=== PATIENT | female | born 1945 | race Caucasian/White ===

== ENCOUNTER 2019-11-24 18:33 | Emergency (ER) | payer MEDICARE, BC ==
--- NOTE | 2019-11-24 19:11 | EDM.PDOC ---
ED HPI GENERAL MEDICAL PROBLEM - General Chief Complaint: [employer]IN [employer] Problem Stated Complaint: VAGINAL BLEEDING Time Seen by Provider: 11/24/19 18:43 Source of Information: Reports: Patient History Limitations: Reports: No Limitations - History of Present Illness INITIAL COMMENTS - FREE TEXT/NARRATIVE: Patient presents by private vehicle from home describing lower abdominal pain and increasing vaginal bleeding over the last 48 hours. She did not feel good Wednesday and then began to notice some abdominal discomfort . She came to the clinic today and among other parts of the visit and a vaginal ultrasound. She does not know the exact findings of the ultrasound but was told by staff that if bleeding worsened, she should return to the emergency department. She apparently also has been scheduled to see oncology. She felt lightheaded and sweaty yesterday and also today while she was driving here, on her own. On arrival her systolic blood pressure was less than 80 and pulse was in the 90s. She feels weak and lightheaded. Onset: Gradual Duration: Day(s): (3) Location: Reports: Pelvis Quality: Reports: Burning, Sharp Severity: Moderate Improves with: Reports: None Worsens with: Reports: Movement Associated Symptoms: Reports: Diaphoresis, Weakness - Related Data Allergies Allergy/AdvReac Type Severity Reaction Status Date / Time cephalexin [From Keflex] Allergy Hives Verified 11/24/19 18:50 Penicillins Allergy Hives Verified 11/24/19 18:50 Home Meds: Home Meds Simvastatin 1 tab PO DAILY 11/24/19 [History] Vit D3 & K/Berberine HCl/Hops [Ostera] 1 tab PO DAILY 11/24/19 [History] amLODIPine Besylate [Amlodipine Besylate] 1 tab PO DAILY 11/24/19 [History] lisinopriL [Lisinopril] 1 tab PO BID 11/24/19 [History] Past Medical History Cardiovascular History: Reports: High Cholesterol, Hypertension Social & Family History - Tobacco Use Smoking Status *Q: Never Smoker ED ROS GENERAL - Review of Systems Review Of Systems: See Below Constitutional: Reports: Weakness, Diaphoresis HEENT: Reports: No Symptoms Respiratory: Reports: No Symptoms Cardiovascular: Reports: Lightheadedness Endocrine: Reports: Fatigue GI/Abdominal: Reports: Abdominal Pain, Other (Vaginal bleeding.) : Reports: No Symptoms Musculoskeletal: Reports: No Symptoms Skin: Reports: No Symptoms ED EXAM, GI/ABD - Physical Exam Exam: See Below Text/Narrative:: This is an adult female in moderate distress lying on her left side to reduce lightheaded feelings. Exam Limited By: No Limitations General Appearance: Mild Distress Cardiovascular: Tachycardia GI/Abdominal Exam: Soft, Tender (Low central abdominal pain on palpation) (Female) Exam: Vaginal Bleeding, Other (Speculum examination shows a mixture of clotted blood, brighter red blood, possible tissue pieces with steady oozing in the vagina. A 4 inch Trena roll was placed in the vagina to act as a tampon. There is diffuse anterior abdomen discomfort on directed pressure and some increase in visible bleeding.) EKG INTERPRETATION EKG Date: 11/24/19 Time: 19:50 Rhythm: NSR [place]: Normal P-Wave: Present QRS: Normal ST-T: Normal QT: Normal Comparison: NA - No Prior EKG EKG Interpretation Comments: There is poor R-wave progression through the precordial leads. Course - Vital Signs Last Recorded V/S: Last Vital Signs Temp 37.2 C 11/24/19 18:58 Pulse 87 11/24/19 19:56 Resp 16 11/24/19 19:56 BP 95/58 L 11/24/19 19:56 Pulse Ox 94 L 11/24/19 19:56 - Orders/Labs/Meds Orders: Active Orders 24 hr Category Date Time Status EKG Documentation Completion [RC] ASDIRECTED Care 11/24/19 19:22 Ordered PATIENT RETYPE [BBK] Stat Lab 11/24/19 19:12 Results TYPE AND SCREEN [BBK] Stat Lab 11/24/19 19:12 Ordered Lactated Ringers [Ringers, Lactated] 1,000 ml Med 11/24/19 20:20 Ordered IV BOLUS Sodium Chloride 0.9% [Saline Flush] Med 11/24/19 19:14 Ordered 10 ml FLUSH ASDIRECTED PRN Saline Lock Insert [OM.PC] Routine Oth 11/24/19 19:14 Ordered EKG 12 Lead [EK] Routine Ther 11/24/19 19:21 Ordered Medication Orders Lactated Ringer's (Ringers, Lactated) 1,000 mls @ 250 mls/hr IV BOLUS ONE Stop: 11/25/19 00:19 Last Admin: 11/24/19 20:22 Dose: 250 mls/hr Sodium Chloride (Saline Flush) 10 ml FLUSH ASDIRECTED PRN PRN Reason: Keep Vein Open Labs: Laboratory Tests 11/24/19 11/24/19 11/24/19 Range/Units 19:12 19:15 19:15 WBC 24.4 H (4.5-11.0) K/uL RBC 4.90 (3.30-5.50) M/uL Hgb 13.9 (12.0-15.0) g/dL Hct 43.0 (36.0-48.0) % MCV 88 (80-98) fL MCH 28 (27-31) pg MCHC 32 (32-36) % Plt Count 144 L (150-400) K/uL Add Manual Diff Yes Neutrophils % (Manual) 91 H (36-66) % Band Neutrophils % 8 (5-11) % Monocytes % (Manual) 1 L (2-6) % PT 11.6 (9.5-12.0) sec INR 1.08 (0.80-1.20) Sodium (140-148) mmol/L Potassium (3.6-5.2) mmol/L Chloride (100-108) mmol/L Carbon Dioxide (21-32) mmol/L Anion Gap (5.0-14.0) mmol/L BUN (7-18) mg/dL Creatinine (0.6-1.0) mg/dL Est Cr Clr Drug Dosing mL/min Estimated GFR (MDRD) (>60) Glucose (74-106) mg/dL Calcium (8.5-10.1) mg/dL Total Bilirubin (0.2-1.0) mg/dL AST (15-37) U/L ALT (12-78) U/L Alkaline Phosphatase (46-116) U/L Troponin I (0.000-0.056) ng/mL Total Protein (6.4-8.2) g/dL Albumin (3.4-5.0) g/dL Globulin (2.3-3.5) g/dL Albumin/Globulin Ratio (1.2-2.2) Blood Type A POSITIVE Gel Antibody Screen Negative 11/24/19 11/24/19 Range/Units 19:15 19:15 WBC (4.5-11.0) K/uL RBC (3.30-5.50) M/uL Hgb (12.0-15.0) g/dL Hct (36.0-48.0) % MCV (80-98) fL MCH (27-31) pg MCHC (32-36) % Plt Count (150-400) K/uL Add Manual Diff Neutrophils % (Manual) (36-66) % Band Neutrophils % (5-11) % Monocytes % (Manual) (2-6) % PT (9.5-12.0) sec INR (0.80-1.20) Sodium 135 L (140-148) mmol/L Potassium 3.8 (3.6-5.2) mmol/L Chloride 98 L (100-108) mmol/L Carbon Dioxide 20 L (21-32) mmol/L Anion Gap 20.8 H (5.0-14.0) mmol/L BUN 53 H (7-18) mg/dL Creatinine 2.6 H (0.6-1.0) mg/dL Est Cr Clr Drug Dosing 17.23 mL/min Estimated GFR (MDRD) 18 L (>60) Glucose 165 H (74-106) mg/dL Calcium 9.9 (8.5-10.1) mg/dL Total Bilirubin 1.0 (0.2-1.0) mg/dL AST 33 (15-37) U/L ALT 20 (12-78) U/L Alkaline Phosphatase 147 H (46-116) U/L Troponin I 0.036 (0.000-0.056) ng/mL Total Protein 7.2 (6.4-8.2) g/dL Albumin 3.3 L (3.4-5.0) g/dL Globulin 3.9 H (2.3-3.5) g/dL Albumin/Globulin Ratio 0.9 L (1.2-2.2) Blood Type Gel Antibody Screen Meds: Medications Generic Name Dose Route Start Last Admin Trade Name Freq PRN Reason Stop Dose Admin Lactated Ringer's 1,000 mls @ 250 mls/hr 11/24/19 20:20 11/24/19 20:22 Ringers, Lactated IV 11/25/19 00:19 250 mls/hr BOLUS ONE Administration Sodium Chloride 10 ml 11/24/19 19:14 Saline Flush FLUSH ASDIRECTED PRN Keep Vein Open Discontinued Medications Generic Name Dose Route Start Last Admin Trade Name Cheli PRN Reason Stop Dose Admin Lactated Ringer's 1,000 mls @ 999 mls/hr 11/24/19 19:14 11/24/19 19:19 Ringers, Lactated IV 11/24/19 20:14 999 mls/hr BOLUS ONE Administration Lactated Ringer's 1,000 mls @ 999 mls/hr 11/24/19 19:42 11/24/19 19:55 Ringers, Lactated IV 11/24/19 20:42 999 mls/hr BOLUS ONE Administration - Re-Assessments/Exams Free Text/Narrative Re-Assessment/Exam: 11/24/19 19:20 The patient will receive 1 L of lactated Ringer's wide open. She will need a pelvic exam. Depending on results of exam and lab findings, she may need transfusion and in particular, may require urgent evaluation depending on other data we received. 11/24/19 19:45 I reviewed the ultrasound report with the patient indicating concern for uterine and endometrial cancer. Given her overall appearance, vaginal exam, recent history, she will need transfer to [facility] in [place] for urgent gynecology consultation. A second liter of lactated Ringer's will be connected and run and at wide open face. Her blood pressure had increased to 93 systolic but came down into the high 80s during vaginal exam. 11/24/19 20:[address] Beaulieu, the [employer] talent acquisition specialist at [facility] in [place]. Given the concern for cancer within the pelvis, she said that it may be better to transfer the patient to a facility that has gynecologic oncology capabilities. She will contact facilities with that available service and review the patient' s case with them. 11/24/19 21:01 I spoke again with Dr. Beaulieu from [facility] in [place]. At this time, gynecologic oncology surgical options are not available. The patient will be transferred to [facility] in [place] for evaluation and stabilization. Her creatinine is 2.6 with a GFR of 15. One year ago, her creatinine was 1.3. It could be that mass within the abdomen is affecting kidney function. No additional medications will be given here. She will be a direct admit to [facility] in [place]. Blood pressure was in the high 90s systolic at the time of transfer and the patient did feel better although hungry. Departure - Departure Time of Disposition: 21:03 Disposition: DC/Tfer to [facility] 02 Condition: Fair Clinical Impression: Vaginal bleeding, Acute kidney injury, Endometrial mass Hypotension Qualifiers: Hypotension type: hypotension due to hypovolemia Qualified Code(s): I95.89 - Other hypotension; E86.1 - Hypovolemia - Discharge Information *PRESCRIPTION DRUG MONITORING PROGRAM REVIEWED*: Not Applicable *COPY OF PRESCRIPTION DRUG MONITORING REPORT IN PATIENT OSMAR: Not Applicable Referrals: Rhina Woods PA [Primary Care Provider] - Forms: ED Department Discharge Sepsis Event Note - Evaluation Sepsis Screening Result: No Definite Risk - Focused Exam Vital Signs: Vital Signs Temp Pulse Resp BP BP Pulse Ox 11/24/19 19:56 87 16 95/58 L 94 L 11/24/19 19:33 89 93/54 L 93 L 11/24/19 19:17 78/48 L 90 L 11/24/19 18:58 37.2 C 101 H 18 75/45 L 87 L 11/24/19 18:50 101 H 75/45 L 87 L 11/24/19 18:48 37.2 C 96 18 79/51 L 88 L Date Exam was Performed: 11/24/19 Time Exam was Performed: 21:01 - My Orders Last 24 Hours: My Active Orders 11/24/19 19:12 PATIENT RETYPE [BBK] Stat TYPE AND SCREEN [BBK] Stat 11/24/19 19:14 Sodium Chloride 0.9% [Saline Flush] 10 ml FLUSH ASDIRECTED PRN Saline Lock Insert [OM.PC] Routine 11/24/19 19:21 EKG 12 Lead [EK] Routine 11/24/19 19:22 EKG Documentation Completion [RC] ASDIRECTED 11/24/19 20:20 Lactated Ringers [Ringers, Lactated] 1,000 ml IV BOLUS - Assessment/Plan Last 24 Hours: My Active Orders 11/24/19 19:12 PATIENT RETYPE [BBK] Stat TYPE AND SCREEN [BBK] Stat 11/24/19 19:14 Sodium Chloride 0.9% [Saline Flush] 10 ml FLUSH ASDIRECTED PRN Saline Lock Insert [OM.PC] Routine 11/24/19 19:21 EKG 12 Lead [EK] Routine 11/24/19 19:22 EKG Documentation Completion [RC] ASDIRECTED 11/24/19 20:20 Lactated Ringers [Ringers, Lactated] 1,000 ml IV BOLUS
[2019-11-24] MEDS ORDERED: Sodium Chloride 0.9% 10 ML Syringe FLUSH PRN (19:14)
[2019-11-24] MEDS ORDERED: Lactated Ringers 1,000 ML IV ONE ×3 (19:14→20:20)
== END 2019-11-24 21:25 ==
LOC: JP.ED 18:33
DX: N17.9 Acute kidney failure, unspecified (principal); N85.9 Noninflammatory disorder of uterus, unspecified; N93.9 Abnormal uterine and vaginal bleeding, unspecified; E86.1 Hypovolemia; Z88.1 Allergy status to other antibiotic agents; Z88.0 Allergy status to penicillin; E78.00 Pure hypercholesterolemia, unspecified; I10 Essential (primary) hypertension; Z79.899 Other long term (current) drug therapy
CPT/HCPCS: 36415; 80053; 84484; 85025; 85610; 86850; 86900; 86901; 93005; 96360; 96361; 99285; J7120

== ENCOUNTER 2019-12-29 11:51 | Emergency (ER) | payer MEDICARE, BC ==
--- NOTE | 2019-12-29 12:24 | EDM.PDOC ---
ED HPI GENERAL MEDICAL PROBLEM - General Chief Complaint: General Stated Complaint: low blood pressure Time Seen by Provider: 12/29/19 12:13 Source of Information: Reports: Patient, Provider, RN Notes Reviewed History Limitations: Reports: No Limitations - History of Present Illness INITIAL COMMENTS - FREE TEXT/NARRATIVE: 74-year-old female presents emergency department today via EMS for hypotension, she is currently undergoing chemotherapy for uterine cancer did receive Taxol today at the infusion center limited amount approximately 40 mL of the infusion was premedicated with combination Pepcid Benadryl and dexamethasone. After discussion case with provider at the infusion center this is the second reaction she has had to Taxol first 1 the infusion was stopped additional Benadryl given and then restarted. This particular event at the point time described above became severely hypotensive systolic blood pressures in the 50s was unresponsive, more arousable by the time EMS arrived - Related Data Allergies Allergy/AdvReac Type Severity Reaction Status Date / Time cephalexin [From Keflex] Allergy Hives Verified 12/29/19 11:54 Penicillins Allergy Hives Verified 12/29/19 11:54 Home Meds: Home Meds Vit D3 & K/Berberine HCl/Hops [Ostera] 1 tab PO DAILY 11/24/19 [History] Enoxaparin Sodium 100 mg INJECT DAILY 12/29/19 [History] atenoloL [Atenolol] 25 mg PO DAILY 12/29/19 [History] Past Medical History Cardiovascular History: Reports: High Cholesterol, Hypertension Oncologic (Cancer) History: Reports: Uterine Social & Family History - Tobacco Use Smoking Status *Q: Never Smoker ED ROS GENERAL - Review of Systems Review Of Systems: See Below Constitutional: Reports: No Symptoms HEENT: Reports: No Symptoms Respiratory: Reports: No Symptoms Cardiovascular: Reports: Blood Pressure Problem, Lightheadedness GI/Abdominal: Reports: No Symptoms ED EXAM, GENERAL - Physical Exam Exam: See Below Exam Limited By: No Limitations General Appearance: Alert, WD/WN, No Apparent Distress Respiratory/Chest: No Respiratory Distress, Lungs Clear, Normal Breath Sounds, No Accessory Muscle Use, Chest Non-Tender Cardiovascular: Regular Rate, Rhythm, No Murmur GI/Abdominal: Soft, Non-Tender Course - Vital Signs Last Recorded V/S: Last Vital Signs Temp 96.9 F 12/29/19 11:58 Pulse 85 12/29/19 11:58 Resp 20 05/01/20 11:58 BP 88/47 L 12/29/19 11:58 Pulse Ox 92 L 12/29/19 11:58 - Orders/Labs/Meds Labs: Laboratory Tests 12/29/19 12/29/19 Range/Units 12:30 12:30 WBC 34.4 H* (4.5-11.0) K/uL RBC 3.46 (3.30-5.50) M/uL Hgb 9.5 L D (12.0-15.0) g/dL Hct 31.5 L (36.0-48.0) % MCV 91 (80-98) fL MCH 28 (27-31) pg MCHC 30 L (32-36) % Plt Count 739 H (150-400) K/uL Add Manual Diff Yes Neutrophils % (Manual) 84 H (36-66) % Band Neutrophils % 10 (5-11) % Lymphocytes % (Manual) 3 L (24-44) % Monocytes % (Manual) 3 (2-6) % Sodium 137 L (140-148) mmol/L Potassium 4.0 (3.6-5.2) mmol/L Chloride 102 (100-108) mmol/L Carbon Dioxide 27 (21-32) mmol/L Anion Gap 12.0 (5.0-14.0) mmol/L BUN 12 D (7-18) mg/dL Creatinine 1.1 H D (0.6-1.0) mg/dL Est Cr Clr Drug Dosing 40.73 mL/min Estimated GFR (MDRD) 48 L (>60) Glucose 153 H (74-106) mg/dL Calcium 8.4 L D (8.5-10.1) mg/dL Total Bilirubin 0.2 D (0.2-1.0) mg/dL AST 29 (15-37) U/L ALT 38 D (12-78) U/L Alkaline Phosphatase 103 (46-116) U/L Troponin I < 0.017 (0.000-0.056) ng/mL Total Protein 6.3 L (6.4-8.2) g/dL Albumin 1.8 L (3.4-5.0) g/dL Globulin 4.5 H (2.3-3.5) g/dL Albumin/Globulin Ratio 0.4 L (1.2-2.2) Departure - Departure Time of Disposition: 13:28 Disposition: Home, Self-Care 01 Condition: Fair Clinical Impression: Hypotension due to drugs - Discharge Information Referrals: Rhina Woods PA [Primary Care Provider] - Forms: ED Department Discharge Additional Instructions: Continue with regular medications, recommend follow-up with oncology for further treatment options, call or return to the emergency department worsening of symptoms Sepsis Event Note - Evaluation Sepsis Screening Result: No Definite Risk - Focused Exam Vital Signs: Vital Signs Temp Pulse Resp BP Pulse Ox 12/29/19 11:58 96.9 F 85 20 88/47 L 92 L Date Exam was Performed: 12/29/19 Time Exam was Performed: 13:26 - Assessment/Plan Plan: Assessment Acuity = acute Site and laterality = hypotension secondary to a drug Etiology = probable Taxol causative agent Manifestations = hypotension now resolved Location of injury = Home Lab values = WBC elevated 30.4 consistent leukocytosis, hemoglobin low at 9.5 consistent normochromic anemia creatinine elevated 1.1 consistent chronic renal failure stage G3 a troponin was negative albumin low at 1.8 consistent hypoalbuminemia Plan Good improvement 1 L fluids provided in the emergency department she was able to ambulate around without difficulty systolic blood pressure did come up to around 100, plan she is going to follow-up with oncology about further treatment options This note was dictated using [employer] voice recognition software please call with any questions on syntax or grammar.
== END 2019-12-29 13:49 | disposition home or self-care (01) ==
LOC: JP.ED 11:51
DX: I95.2 Hypotension due to drugs (principal); T45.1X5A Adverse effect of antineoplastic and immunosuppressive drugs, initial encounter; C55 Malignant neoplasm of uterus, part unspecified; I10 Essential (primary) hypertension; Z88.1 Allergy status to other antibiotic agents; Z88.0 Allergy status to penicillin; Z79.899 Other long term (current) drug therapy
CPT/HCPCS: 36415; 80053; 84484; 85025; 99283; 99285; J1642

== ENCOUNTER 2020-07-11 03:11 | Observation (INO) | payer MEDICARE, BC ==
[2020-07-11] MEDS ORDERED: Sodium Chloride 0.9% 1,000 ML IV SCH ×4 (03:15→17:45)
--- NOTE | 2020-07-11 03:21 | EDM.PDOC ---
ED HPI GENERAL MEDICAL PROBLEM - General Chief Complaint: Syncope Stated Complaint: [facility] Time Seen by Provider: 07/11/20 03:14 Source of Information: Reports: Patient, EMS History Limitations: Reports: No Limitations - History of Present Illness INITIAL COMMENTS - FREE TEXT/NARRATIVE: Carrie is a 74-year-old female who is currently undergoing radiation therapy for ovarian cancer. She has been dealing with diarrhea for the last several weeks and tonight got up to go to the bathroom and had what appears to be a vasovagal syncopal episode. The patient suddenly became dizzy, lightheaded, diaphoretic, and then passed out. Patient denies any fever, chills, nausea or vomiting. She has had a diminished appetite and has been eating and drinking less likely contributing to her level of dehydration. Left Upper Shoulder Pain Score (Numeric/FACES): 1 - Related Data Allergies Allergy/AdvReac Type Severity Reaction Status Date / Time cephalexin [From Keflex] Allergy Hives Verified 12/29/19 11:54 Penicillins Allergy Hives Verified 12/29/19 11:54 Home Meds: Home Meds atenoloL [Atenolol] 25 mg PO DAILY 12/29/19 [History] Past Medical History Cardiovascular History: Reports: High Cholesterol, Hypertension Oncologic (Cancer) History: Reports: Uterine ED ROS GENERAL - Review of Systems Review Of Systems: See Below Constitutional: Reports: Malaise, Fatigue, Decreased Appetite, Weight Loss HEENT: Reports: No Symptoms Respiratory: Reports: No Symptoms Cardiovascular: Reports: Syncope, Other (Hypotensive) Endocrine: Reports: No Symptoms GI/Abdominal: Reports: Diarrhea, Decreased Appetite : Reports: No Symptoms Musculoskeletal: Reports: No Symptoms Skin: Reports: No Symptoms Neurological: Reports: No Symptoms Psychiatric: Reports: No Symptoms Hematologic/Lymphatic: Reports: No Symptoms Immunologic: Reports: No Symptoms - Physical Exam Exam: See Below Exam Limited By: No Limitations General Appearance: Alert, WD/WN, No Apparent Distress Eye Exam: Bilateral Eye: EOMI, PERRL Throat/Mouth: Other (Very dry mucous membranes) Head Exam: Atraumatic, Normocephalic Neck: Normal Inspection, Supple, Non-Tender, Full Range of Motion Respiratory/Chest: No Respiratory Distress, Lungs Clear, Normal Breath Sounds, No Accessory Muscle Use Cardiovascular: Normal Peripheral Pulses, Regular Rate, Rhythm, No Edema, No JVD, No Murmur GI/Abdominal: Soft, Non-Tender, Abnormal Bowel Sounds (Diffuse increased bowel sounds). No: Guarding, Rebound (Female) Exam: Deferred Rectal (Female) Exam: Deferred Neuro Exam (Abbreviated): Alert, Oriented, Normal Cognition, No Motor/Sensory Deficits Extremities: Normal Inspection, Normal Range of Motion, Non-Tender, No Pedal Edema, Normal Capillary Refill Psychiatric: Normal Affect, Normal Mood Skin Exam: Warm, Dry, Intact, Normal Color, No Rash #1 Interpretation EKG Date: 07/11/20 Time: 04:47 Rhythm: NSR Rate (Beats/Min): 69 [place]: Normal P-Wave: Present (Prolonged [place] interval) QRS: Normal (Nonspecific intraventricular conduction delay) ST-T: Other (Flattening of the ST segments) QT: Normal Course - Vital Signs Last Recorded V/S: Last Vital Signs Temp 36.4 C 07/11/20 03:40 Pulse 70 07/11/20 04:03 Resp 16 07/11/20 04:03 BP 95/59 L 07/11/20 04:03 Pulse Ox 95 07/11/20 04:03 Orthostatic Blood Pressure [ 62/39 Standing] Orthostatic Blood Pressure [ 89/59 Sitting] Orthostatic Blood Pressure [ 103/58 Supine] - Orders/Labs/Meds Orders: Active Orders 24 hr Category Date Time Status EKG Documentation Completion [RC] ASDIRECTED Care 07/11/20 04:36 Active CORONAVIRUS COVID-19 RAPID [MOLEC] Routine Lab 07/11/20 05:22 Received UA W/MICROSCOPIC [URIN] Stat Lab 07/11/20 03:15 Ordered Sodium Chloride 0.9% [Normal Saline] 1,000 ml Med 07/11/20 03:15 Active IV ASDIRECTED Sodium Chloride 0.9% [Normal Saline] 1,000 ml Med 07/11/20 05:30 Active IV ASDIRECTED EKG 12 Lead [EK] Routine Ther 07/11/20 04:36 Ordered Medication Orders Sodium Chloride (Normal Saline) 1,000 mls @ 500 mls/hr IV ASDIRECTED MELECIO Last Admin: 07/11/20 03:20 Dose: 500 mls/hr Documented by: PAULA Sodium Chloride (Normal Saline) 1,000 mls @ 150 mls/hr IV ASDIRECTED MELECIO Labs: Laboratory Tests 07/11/20 07/11/20 Range/Units 03:20 03:20 WBC 3.3 L (4.5-11.0) K/uL RBC 4.71 (3.30-5.50) M/uL Hgb 14.6 D (12.0-15.0) g/dL Hct 42.1 (36.0-48.0) % MCV 89 (80-98) fL MCH 31 (27-31) pg MCHC 35 (32-36) % Plt Count (150-400) K/uL Add Manual Diff Yes Neutrophils % (Manual) 55 (36-66) % Band Neutrophils % 6 (5-11) % Lymphocytes % (Manual) 18 L (24-44) % Monocytes % (Manual) 17 H (2-6) % Eosinophils % (Manual) 4 (2-4) % Sodium 131 L (140-148) mmol/L Potassium 4.7 (3.6-5.2) mmol/L Chloride 100 (100-108) mmol/L Carbon Dioxide 15 L (21-32) mmol/L Anion Gap 20.7 H (5.0-14.0) mmol/L BUN 41 H D (7-18) mg/dL Creatinine 3.5 H (0.6-1.0) mg/dL Est Cr Clr Drug Dosing 12.30 mL/min Estimated GFR (MDRD) 13 L (>60) Glucose 141 H (74-106) mg/dL Calcium 6.5 L* D (8.5-10.1) mg/dL Total Bilirubin 0.2 (0.2-1.0) mg/dL AST 24 (15-37) U/L ALT 44 (12-78) U/L Alkaline Phosphatase 58 (46-116) U/L Total Protein 5.9 L (6.4-8.2) g/dL Albumin 3.1 L (3.4-5.0) g/dL Globulin 2.8 (2.3-3.5) g/dL Albumin/Globulin Ratio 1.1 L (1.2-2.2) Meds: Medications Generic Name Dose Route Start Last Admin Trade Name Freq PRN Reason Stop Dose Admin Sodium Chloride 1,000 mls @ 500 mls/hr 07/11/20 03:15 07/11/20 03:20 Normal Saline IV 500 mls/hr ASDIRECTED MELECIO Administration Sodium Chloride 1,000 mls @ 150 mls/hr 07/11/20 05:30 Normal Saline IV ASDIRECTED MELECIO Discontinued Medications Generic Name Dose Route Start Last Admin Trade Name Cheli PRN Reason Stop Dose Admin Calcium Gluconate 2 gm/ Sodium 120 mls @ 100 mls/hr 07/11/20 04:27 07/11/20 04:43 Chloride IV 07/11/20 05:38 100 mls/hr ONETIME ONE Administration - Re-Assessments/Exams Free Text/Narrative Re-Assessment/Exam: 07/11/20 03:52 patient has very significant orthostatic hypotension. We will continue to hydrate her with a liter bolus of normal saline. 07/11/20 04:33 labs returned showing a profound hypocalcemia at 6.5 that corrects to 6.7 when corrected to albumin. We will replete her with calcium carbonate 2 g IV. In addition she has a very significant creatinine at 3.5 suggesting acute kidney injury. She has a significant BUN at 41, however the BUN to creatinine ratio is less than 20 suggesting that the elevation of the creatinine is not directly due to the dehydration. 07/11/20 04:46 given the number of abnormalities and the ongoing tenuous blood pressure, I am going to recommend we admit the patient for further stabilization. I will discuss the case with Dr. Nick Rivera, hospitalist coordinator of rehabilitation services to arrange for admission of the patient. 07/11/20 05:50 COVID-19 is negative. Departure - Departure Time of Disposition: 05:50 Disposition: Admitted As Inpatient 64 Condition: Fair Clinical Impression: Severe dehydration, Hypocalcemia, Acute kidney injury, Hypotension due to drugs Uterine cancer Qualifiers: Malignant neoplasm of uterus location: unspecified site of uterus Qualified Code(s): C55 - Malignant neoplasm of uterus, part unspecified - Discharge Information *PRESCRIPTION DRUG MONITORING PROGRAM REVIEWED*: Not Applicable *COPY OF PRESCRIPTION DRUG MONITORING REPORT IN PATIENT OSMAR: Not Applicable Referrals: PCP,None [Primary Care Provider] - Forms: ED Department Discharge Sepsis Event Note (ED) - Focused Exam Vital Signs: Vital Signs Temp Pulse Resp BP Pulse Ox 07/11/20 04:03 70 16 95/59 L 95 07/11/20 03:44 69 104/65 07/11/20 03:40 36.4 C 70 16 95/69 97 07/11/20 03:21 59 L 103/58 L - Problem List & Annotations (1) Severe dehydration SNOMED Code(s): 275836925 Code(s): E86.0 - DEHYDRATION Status: Acute Priority: Medium Current Visit: Yes (2) Hypocalcemia SNOMED Code(s): 5632144 Code(s): E83.51 - HYPOCALCEMIA Status: Acute Priority: High Current Visit: Yes (3) Acute kidney injury SNOMED Code(s): 35987824, 20240041 Code(s): N17.9 - ACUTE KIDNEY FAILURE, UNSPECIFIED Status: Acute Priority: High Current Visit: Yes (4) Hypotension SNOMED Code(s): 34306522 Code(s): I95.9 - HYPOTENSION, UNSPECIFIED Status: Acute Priority: High Current Visit: No Qualifiers: Hypotension type: hypotension due to hypovolemia Qualified Code(s): I95.89 - Other hypotension; E86.1 - Hypovolemia (5) Uterine cancer SNOMED Code(s): 150730272 Code(s): C55 - MALIGNANT NEOPLASM OF UTERUS, PART UNSPECIFIED Status: Chronic Priority: Medium Current Visit: Yes Qualifiers: Malignant neoplasm of uterus location: unspecified site of uterus Qualified Code(s): C55 - Malignant neoplasm of uterus, part unspecified - Problem List Review Problem List Initiated/Reviewed/Updated: Yes - My Orders Last 24 Hours: My Active Orders 07/11/20 03:15 UA W/MICROSCOPIC [URIN] Stat Sodium Chloride 0.9% [Normal Saline] 1,000 ml IV ASDIRECTED 07/11/20 04:36 EKG Documentation Completion [RC] ASDIRECTED EKG 12 Lead [EK] Routine 07/11/20 05:22 CORONAVIRUS COVID-19 RAPID [MOLEC] Routine 07/11/20 05:30 Sodium Chloride 0.9% [Normal Saline] 1,000 ml IV ASDIRECTED - Assessment/Plan Last 24 Hours: My Active Orders 07/11/20 03:15 UA W/MICROSCOPIC [URIN] Stat Sodium Chloride 0.9% [Normal Saline] 1,000 ml IV ASDIRECTED 07/11/20 04:36 EKG Documentation Completion [RC] ASDIRECTED EKG 12 Lead [EK] Routine 07/11/20 05:22 CORONAVIRUS COVID-19 RAPID [MOLEC] Routine 07/11/20 05:30 Sodium Chloride 0.9% [Normal Saline] 1,000 ml IV ASDIRECTED Plan: I plan to admit the patient for further rehydration, monitoring of kidney function, checking for correction of hypocalcemia and further medical care. I discussed the case with Dr. Rivera will arrange for admission.
[2020-07-11] MEDS ORDERED: Calcium Gluconate 2 GM in Sodium Chloride 0.9% 100 ML IV ONE (04:27)
[2020-07-11] MEDS ORDERED: Ondansetron 4 MG/2 ML SDV IV PRN (06:26)
[2020-07-11] MEDS ORDERED: Atropine/Diphenoxylate 0.025-2.5 MG Tab PO ONE (06:31)
--- NOTE | 2020-07-11 07:30 | HP ---
CHIEF COMPLAINT: Syncope. HISTORY OF PRESENT ILLNESS: A 74-year-old who is getting treatment for uterine cancer with current radiation, which she is still supposed to have 6 more treatments. Has been having diarrhea for about a week, but over the last couple of days has gotten worse. She has had maybe a little bit of nausea, but no vomiting. Having multiple stools a day. She denies any blood in her stools. Denies any significant abdominal pain, but has been feeling lightheaded and had a syncopal episode the night of admission. The patient came into the emergency room, was noted to have acute kidney injury with dehydration and electrolyte abnormalities, and I was asked to admit the patient for further evaluation and treatment. The patient denies any other complaints. PAST MEDICAL HISTORY: Uterine cancer, where she had chemotherapy in summer and then ended up having surgery, and now has been getting radiation. She denies any other medical problems in the past. MEDICATIONS: Atenolol 25 mg daily. ALLERGIES: TO CEPHALEXIN AND PENICILLIN. SOCIAL HISTORY: Never smoked. No alcohol use. FAMILY HISTORY: Noncontributory. REVIEW OF SYSTEMS: Denies headaches, vision changes, upper respiratory symptoms. No chest pain, shortness of breath, cough, a little bit of nausea. No vomiting. She has had the significant diarrhea. No bloody or black stools. No urinary problems reported. No swelling of legs. No skin problems reported. No neurologic complaints reported. OBJECTIVE: VITAL SIGNS: Pulse 69. Blood pressure was in the 70s in the ambulance, but did get 500 bolus of normal saline and did rise to 104/65, has dropped to a low of 95/52, and last blood pressure is 107/56. Respirations 16. O2 saturation 95% on room air. HEENT: Ears are clear. Pharynx is clear. NECK: Supple. No adenopathy, thyromegaly. LUNGS: Clear. HEART: Regular without murmurs. ABDOMEN: Soft. She has some mild diffuse discomfort, but is just mild. No distention. No mass or organomegaly palpated. EXTREMITIES: No edema. SKIN: Negative. NEUROLOGIC: Cranial nerves 2 through 12 are grossly intact. Alert and oriented. DIAGNOSTIC DATA: EKG showed sinus rhythm, prolonged [place] interval, but otherwise no significant dysrhythmia. LABORATORY DATA: COVID test was negative. White count 3.3, hemoglobin 14.6, platelets could not be read, has 18% lymphocytes, 17% monocytes, 55% neutrophils. Sodium 131, potassium 4.7, chloride 100, BUN was 41, creatinine 3.5, glucose 141, calcium was low at 6.5. Liver functions were normal. ASSESSMENT: Syncope secondary to diarrhea caused by radiation treatment with dehydration and acute kidney injury. The patient has been getting IV fluids, which we will continue. The patient did receive IV calcium for hypocalcemia. We will admit her under observation and transfer her care to the hospitalist service. We will recheck electrolytes later today. She is supposed to have radiation treatment today, but daughter will call and postpone this. We will hold her atenolol with her hypotension. Eduard Rivera MD /[id number]
[2020-07-11] MEDS ORDERED: Potassium Chloride 20 MEQ in Premix Bag 1 BAG IV ONE ×2 (15:00→17:00)
[2020-07-11] MEDS ORDERED: Potassium Chloride 20 MEQ Tab.ER PO ONE ×2 (15:00→23:15)
[2020-07-11] MEDS: Loperamide 2 MG Cap PO PRN ×4 (15:13→23:21)
[2020-07-11] MEDS: Lactobacillus Rhamnosus GG (Probiotic) Cap PO SCH ×2 (15:20→20:22)
[2020-07-11] MEDS ORDERED: Enoxaparin 30 MG/0.3 ML Syringe SUBCUT SCH (16:00)
--- NOTE | 2020-07-11 18:36 | PCM.PN ---
- General Info Date of Service: 07/11/20 Subjective Update: Ms. Plaza is a 74-year-old woman who was admitted earlier this morning by Dr. Rivera with weakness and dehydration secondary to diarrhea, and causing a syncopal episode. She has a known history of uterine cancer and is status post chemotherapy as well as surgical resection. She recently has been receiving radiation therapy which has become complicated by diarrhea over the past few weeks. She has become progressively more weak with poor oral intake. Last night she experienced a syncopal episode and was brought into the emergency department for further evaluation. On laboratory studies there was evidence of acute kidney injury and dehydration. She was found to have hypokalemia, other labs were unremarkable. After hydration she is feeling somewhat improved, with increased strength and appetite. - Review of Systems General: Reports: Weakness, Fatigue. Denies: Fever, Chills Pulmonary: Reports: No Symptoms Cardiovascular: Reports: No Symptoms Gastrointestinal: Reports: Decreased Appetite, Diarrhea. Denies: Abdominal Pain, Constipation, Difficulty Swallowing, Hematochezia, Melena, Nausea, Vomiting Genitourinary: Reports: No Symptoms - Patient Data Vitals - Most Recent: Last Vital Signs Temp 97.8 F 07/11/20 15:00 Pulse 79 07/11/20 15:00 Resp 18 07/11/20 15:00 BP 113/64 07/11/20 15:00 Pulse Ox 96 07/11/20 15:00 Orthostatic Blood Pressure [ 62/39 Standing] Orthostatic Blood Pressure [ 89/59 Sitting] Orthostatic Blood Pressure [ 103/58 Supine] Weight - Most Recent: 140 lb 0.002 oz I&O - Last 24 Hours: Intake & Output 07/11/20 07/11/20 07/11/20 06:59 14:59 22:59 Output Total 300 Balance -300 Lab Results Last 24 Hours: Laboratory Results - last 24 hr 07/11/20 07/11/20 07/11/20 Range/Units 03:20 03:20 05:22 WBC 3.3 L (4.5-11.0) K/uL RBC 4.71 (3.30-5.50) M/uL Hgb 14.6 D (12.0-15.0) g/dL Hct 42.1 (36.0-48.0) % MCV 89 (80-98) fL MCH 31 (27-31) pg MCHC 35 (32-36) % Plt Count (150-400) K/uL Add Manual Diff Yes Neutrophils % (Manual) 55 (36-66) % Band Neutrophils % 6 (5-11) % Lymphocytes % (Manual) 18 L (24-44) % Monocytes % (Manual) 17 H (2-6) % Eosinophils % (Manual) 4 (2-4) % Sodium 131 L (140-148) mmol/L Potassium 4.7 (3.6-5.2) mmol/L Chloride 100 (100-108) mmol/L Carbon Dioxide 15 L (21-32) mmol/L Anion Gap 20.7 H (5.0-14.0) mmol/L BUN 41 H D (7-18) mg/dL Creatinine 3.5 H (0.6-1.0) mg/dL Est Cr Clr Drug Dosing 12.30 mL/min Estimated GFR (MDRD) 13 L (>60) Glucose 141 H (74-106) mg/dL Calcium 6.5 L* D (8.5-10.1) mg/dL POC WB Ioniz Calcium (1.12-1.32) mmol/L Total Bilirubin 0.2 (0.2-1.0) mg/dL AST 24 (15-37) U/L ALT 44 (12-78) U/L Alkaline Phosphatase 58 (46-116) U/L Total Protein 5.9 L (6.4-8.2) g/dL Albumin 3.1 L (3.4-5.0) g/dL Globulin 2.8 (2.3-3.5) g/dL Albumin/Globulin Ratio 1.1 L (1.2-2.2) Urine Color (YELLOW) Urine Appearance (CLEAR) Urine pH (5.0-8.0) Ur Specific [place] (1.008-1.030) Urine Protein (NEGATIVE) mg/dL Urine Glucose (UA) (NEGATIVE) mg/dL Urine Ketones (NEGATIVE) mg/dL Urine Occult Blood (NEGATIVE) Urine Nitrite (NEGATIVE) Urine Bilirubin (NEGATIVE) Urine Urobilinogen (0.2-1.0) EU/dL Ur Leukocyte Esterase (NEGATIVE) Urine RBC (0-5) Urine WBC (0-5) Ur Epithelial Cells Amorphous Sediment Urine Bacteria Urine Mucus Urine Other SARS CoV-2 RNA Rapid TASH Negative 07/11/20 07/11/20 07/11/20 Range/Units 08:27 08:32 13:50 WBC (4.5-11.0) K/uL RBC (3.30-5.50) M/uL Hgb (12.0-15.0) g/dL Hct (36.0-48.0) % MCV (80-98) fL MCH (27-31) pg MCHC (32-36) % Plt Count (150-400) K/uL Add Manual Diff Neutrophils % (Manual) (36-66) % Band Neutrophils % (5-11) % Lymphocytes % (Manual) (24-44) % Monocytes % (Manual) (2-6) % Eosinophils % (Manual) (2-4) % Sodium 137 L (140-148) mmol/L Potassium 2.5 L* (3.6-5.2) mmol/L Chloride 103 (100-108) mmol/L Carbon Dioxide 20 L (21-32) mmol/L Anion Gap 16.5 H (5.0-14.0) mmol/L BUN 42 H (7-18) mg/dL Creatinine 2.5 H (0.6-1.0) mg/dL Est Cr Clr Drug Dosing 17.20 mL/min Estimated GFR (MDRD) 19 L (>60) Glucose 135 H (74-106) mg/dL Calcium 8.0 L D (8.5-10.1) mg/dL POC WB Ioniz Calcium 1.20 (1.12-1.32) mmol/L Total Bilirubin (0.2-1.0) mg/dL AST (15-37) U/L ALT (12-78) U/L Alkaline Phosphatase (46-116) U/L Total Protein (6.4-8.2) g/dL Albumin (3.4-5.0) g/dL Globulin (2.3-3.5) g/dL Albumin/Globulin Ratio (1.2-2.2) Urine Color Yellow (YELLOW) Urine Appearance Clear (CLEAR) Urine pH 5.5 (5.0-8.0) Ur Specific [place] 1.020 (1.008-1.030) Urine Protein 30 H (NEGATIVE) mg/dL Urine Glucose (UA) Negative (NEGATIVE) mg/dL Urine Ketones Negative (NEGATIVE) mg/dL Urine Occult Blood Negative (NEGATIVE) Urine Nitrite Negative (NEGATIVE) Urine Bilirubin Negative (NEGATIVE) Urine Urobilinogen 0.2 (0.2-1.0) EU/dL Ur Leukocyte Esterase Negative (NEGATIVE) Urine RBC Not seen (0-5) Urine WBC 0-5 (0-5) Ur Epithelial Cells Moderate Amorphous Sediment Not seen Urine Bacteria Few Urine Mucus Moderate Urine Other SARS CoV-2 RNA Rapid TASH Med Orders - Current: Current Medications Acetaminophen (Tylenol) 650 mg PO Q4H PRN PRN Reason: Pain (Mild 1-3)/fever Enoxaparin Sodium (Lovenox) 30 mg SUBCUT Q24H [facility] Last Admin: 07/11/20 16:16 Dose: 30 mg Documented by: Potassium Chloride 20 meq/ (Premix) 100 mls @ 50 mls/hr IV ONETIME ONE Stop: 07/11/20 18:59 Sodium Chloride (Normal Saline) 1,000 mls @ 50 mls/hr IV ASDIRECTED [facility] Lactobacillus Rhamnosus (Culturelle) 1 cap PO BID [facility] Last Admin: 07/11/20 15:20 Dose: 1 cap Documented by: Loperamide HCl (Imodium) 2 mg PO ASDIRECTED PRN PRN Reason: Diarrhea Last Admin: 07/11/20 16:27 Dose: 2 mg Documented by: Ondansetron HCl (Zofran) 4 mg IV Q4H PRN PRN Reason: Nausea/Vomiting Discontinued Medications Diphenoxylate HCl/Atropine (Lomotil 0.025-2.5 Mg) 1 tab PO ONETIME ONE Stop: 07/11/20 06:32 Last Admin: 07/11/20 06:57 Dose: 1 tab Documented by: Sodium Chloride (Normal Saline) 1,000 mls @ 500 mls/hr IV ASDIRECTED [facility] Last Admin: 07/11/20 03:20 Dose: 500 mls/hr Documented by: Calcium Gluconate 2 gm/ Sodium (Chloride) 120 mls @ 100 mls/hr IV ONETIME ONE Stop: 07/11/20 05:38 Last Admin: 07/11/20 04:43 Dose: 100 mls/hr Documented by: Sodium Chloride (Normal Saline) 1,000 mls @ 150 mls/hr IV ASDIRECTED [facility] Last Admin: 07/11/20 05:45 Dose: 150 mls/hr Documented by: Sodium Chloride (Normal Saline) 1,000 mls @ 125 mls/hr IV ASDIRECTED MELECIO Last Admin: 07/11/20 07:28 Dose: 125 mls/hr Documented by: Potassium Chloride 20 meq/ (Premix) 100 mls @ 50 mls/hr IV ONETIME ONE Stop: 07/11/20 16:59 Last Admin: 07/11/20 15:21 Dose: 50 mls/hr Documented by: Potassium Chloride (Klor-Con M20) 40 meq PO ONETIME ONE Stop: 07/11/20 15:01 Last Admin: 07/11/20 15:14 Dose: 40 meq Documented by: - Exam Quality Assessment: DVT Prophylaxis General: Alert, Oriented, Cooperative, Moderate Distress Lungs: Clear to Auscultation, Normal Respiratory Effort Cardiovascular: Regular Rate, Regular Rhythm, No Murmurs GI/Abdominal Exam: Soft, Non-Tender, No Organomegaly, No Distention Extremities: Non-Tender, No Pedal Edema Sepsis Event Note - Evaluation Sepsis Screening Result: No Definite Risk - Focused Exam Vital Signs: Vital Signs Temp Pulse Resp BP Pulse Ox 07/11/20 15:00 97.8 F 79 18 113/64 96 07/11/20 11:00 98.1 F 18 109/81 97 07/11/20 07:41 98.3 F 69 18 98/60 96 - Problem List Review Problem List Initiated/Reviewed/Updated: Yes - My Orders Last 24 Hours: My Active Orders 07/11/20 16:00 Enoxaparin [Lovenox] 30 mg SUBCUT Q24H 07/11/20 17:00 Potassium Chloride [KCL 20 MEQ in Water 100 ML] 20 meq Premix Bag 1 bag IV ONETIME 07/11/20 17:45 Sodium Chloride 0.9% [Normal Saline] 1,000 ml IV ASDIRECTED - Plan Plan:: ASSESSMENT AND PLAN WEAKNESS AND DEHYDRATION-secondary to ongoing diarrhea likely related to her radiation therapy -IV fluids for hydration -Courage oral intake DIARRHEA-likely related to current radiation therapy -Lomotil as needed -Stool studies to evaluate for infection including C. difficile SYNCOPAL EPISODE-likely orthostatic in nature secondary to dehydration -IV fluids as above ACUTE KIDNEY INJURY-secondary to dehydration and intravascular volume depletion -IV fluids as above -Closely monitor urine function and output HYPOCALCEMIA-likely related to ongoing diarrhea -IV calcium replacement -Reassess calcium this evening and in a.m. HYPOKALEMIA-secondary to diarrhea -IV and oral potassium replacement -Reassess potassium later this evening and in a.m. UTERINE CARCINOMA-currently receiving radiation therapy MAINTENANCE ISSUES -DVT prophylaxis; Lovenox 30 mg subcu daily -GI prophylaxis; not indicated -Hightower catheter; not indicated -Nutrition; regular diet -Nicotine dependence; not required CODE STATUS-FULL CODE ADMISSION STATUS-this patient will be admitted to observation status, expect no more than a one night hospital stay for evaluation and management of problems as outlined above. DISPOSITION-anticipate discharge to home after the hospital stay. PRIMARY CARE PROVIDER-
[2020-07-11] MEDS: Acetaminophen 325 MG Tab PO PRN (23:13)
[2020-07-12] MEDS: Loperamide 2 MG Cap PO PRN ×2 (05:09→08:45)
[2020-07-12] MEDS ORDERED: Potassium Chloride 20 MEQ Tab.ER PO ONE (08:12)
[2020-07-12] MEDS: Acetaminophen 325 MG Tab PO PRN (09:01)
[2020-07-12] MEDS: Lactobacillus Rhamnosus GG (Probiotic) Cap PO SCH (10:57)
--- NOTE | 2020-07-12 13:01 | PCM.DCSUM1 ---
Discharge Summary - Hospital Course Diagnosis: Stroke: No Modified Desiree Scale: No Signif.Disability Despite Sympt.Able to Carry Out Usual Act./Duties Modified [place] Scale Score: 1 - Discharge Data Discharge Date: 07/12/20 Discharge Disposition: Home, Self-Care 01 Preliminary Cause of *Q: Cardiac Arrest Condition: Stable - Referral to Home Health Primary Care Physician: MONALISA Rodriguez - Discharge Diagnosis/Problem(s) (1) Severe dehydration SNOMED Code(s): 325772785 ICD Code: E86.0 - DEHYDRATION Status: Acute Priority: Medium Current Visit: Yes (2) Acute kidney injury SNOMED Code(s): 64472065, 12161437 ICD Code: N17.9 - ACUTE KIDNEY FAILURE, UNSPECIFIED Status: Acute Priority: High Current Visit: Yes (3) Hypokalemia due to excessive gastrointestinal loss of potassium SNOMED Code(s): 93486238 ICD Code: E87.6 - HYPOKALEMIA Status: Acute Priority: High Current Visit: Yes Onset Date: ~07/11/20 (4) Hypocalcemia SNOMED Code(s): 2639911 ICD Code: E83.51 - HYPOCALCEMIA Status: Acute Priority: High Current Visit: Yes - Patient Summary/Data Labs Pending at D/C: Stool culture is still pending for Shiga Toxin. C. diff is negative. Recommended Follow-up Testing/Procedures: CBC and BMP with primary care provider early in the week, 07/15 to 07/16/2020 Hospital Course: Ms. Plaza is a 74-year-ol getting treatment for uterine cancer with current radiation, which she still is supposed to have 6 more treatments. She had been having diarrhea for about a week, but over the last few days prior to admission had gotten worse. She had some nausea without vomitting and multiple watery diarrhea stools/day without blood. She had no significant abdominal pain. She had lightheadedness and a syncopal episode which precipitated her transport to the ED via EMS. She was noted in the ED to have acute kidney injury with dehydration and electrolyte abnormalities. During the course of her stay, her bowel have now started to get some consistency and slow in frequency with the use of Loperimide. Her appetite is good and she is taking in food and fluids well. She has a liter hospital water mug and understand that she must take in at least two of these a day for fluid maintenence and replace fluids loss with diarrhea on top of general fluid intake. Her calcium level has improved with replacement and has remained stable. Her potassium has returned to normal limits with continued potassium replacement. Order placed for continued potassium supplement after discharge, she will need labs at her post hospitalization followup with primary care provider. - Patient Instructions Diet: Usual Diet as Tolerated (Try to eat foods high in potassium such as Nuts, avacados, bran cereals, wheat germ, mitchell beans, spinach, tomatoes, broccoli, winter squash, beets, carrots, cauliflower, potatoes, bananas, kiwis, mangos, oranges, beed, pork, or handy.), Drink 8-10+ Glasses/Day Diet, Other: Try to eat foods high in potassium Activity: As Tolerated Notify Provider of: Fever (dizzyness, shortness of breath, confussion, tingling in fingers/toes, severe muscle weakness.), Nausea and/or Vomiting - Discharge Plan *PRESCRIPTION DRUG MONITORING PROGRAM REVIEWED*: Not Applicable *COPY OF PRESCRIPTION DRUG MONITORING REPORT IN PATIENT OSMAR: Not Applicable Prescriptions/Med Rec: Potassium Chloride 20 meq PO BID #60 tablet.er Home Medications: Home Meds atenoloL [Atenolol] 25 mg PO DAILY 12/29/19 [History] Loperamide [Imodium] 2 mg PO ASDIRECTED PRN cap 07/12/20 [Rx] Potassium Chloride 20 meq PO BID #60 tablet.er 07/12/20 [Rx] Oxygen Therapy Mode: Room Air Patient Handouts: Hypokalemia, Hypocalcemia, Adult, Dehydration, Adult, [id number] Referrals: Breanna Hopson PA-C [Ordering Only Provider] - 07/17/20 1:30 pm (Your appointment will be at the [facility]. You will have labs drawn prior to your appointment. ) PCP,None [Ordering Only Provider] - (follow up with your primary care provider (Lakeisha Woods) early in the week (07/15 to 07/16) you will need labs (CBC and BMP) at this visit. Contact your radiation oncologist to determine treatment plan for further radation therapy.) - Discharge Summary/Plan Comment DC Time >30 min.: No - General Info Functional Status: Reports: Pain Controlled - Review of Systems General: Reports: No Symptoms HEENT: Reports: No Symptoms Pulmonary: Reports: No Symptoms Cardiovascular: Reports: No Symptoms Gastrointestinal: Reports: Diarrhea (is starting to get some consistency and less frequent) Genitourinary: Reports: No Symptoms Musculoskeletal: Reports: No Symptoms Skin: Reports: No Symptoms Neurological: Reports: No Symptoms Psychiatric: Reports: No Symptoms - Patient Data Vitals - Most Recent: Last Vital Signs Temp 97.9 F 07/12/20 08:53 Pulse 88 07/12/20 08:53 Resp 18 07/12/20 08:53 BP 108/69 07/12/20 08:53 Pulse Ox 99 07/12/20 08:53 Orthostatic Blood Pressure [ 62/39 Standing] Orthostatic Blood Pressure [ 89/59 Sitting] Orthostatic Blood Pressure [ 103/58 Supine] Weight - Most Recent: 140 lb 0.002 oz I&O - Last 24 hours: Intake & Output 07/11/20 07/12/20 07/12/20 22:59 06:59 14:59 Intake Total 1696 1715 280 Output Total 100 Balance 1596 1715 280 Lab Results - Last 24 hrs: Laboratory Results - last 24 hr 07/11/20 07/11/20 07/12/20 Range/Units 13:50 22:00 06:10 WBC 2.4 L (4.5-11.0) K/uL RBC 4.37 (3.30-5.50) M/uL Hgb 13.4 (12.0-15.0) g/dL Hct 40.2 (36.0-48.0) % MCV 92 (80-98) fL MCH 31 (27-31) pg MCHC 33 (32-36) % Plt Count 152 (150-400) K/uL Add Manual Diff Yes Neutrophils % (Manual) 64 (36-66) % Band Neutrophils % 2 L (5-11) % Lymphocytes % (Manual) 13 L (24-44) % Monocytes % (Manual) 20 H (2-6) % Eosinophils % (Manual) 1 L (2-4) % Sodium 137 L 139 L (140-148) mmol/L Potassium 2.5 L* 3.4 L (3.6-5.2) mmol/L Chloride 103 106 (100-108) mmol/L Carbon Dioxide 20 L 22 (21-32) mmol/L Anion Gap 16.5 H 14.4 H (5.0-14.0) mmol/L BUN 42 H 37 H (7-18) mg/dL Creatinine 2.5 H 1.9 H (0.6-1.0) mg/dL Est Cr Clr Drug Dosing 17.20 22.63 mL/min Estimated GFR (MDRD) 19 L 26 L (>60) Glucose 135 H 114 H (74-106) mg/dL Calcium 8.0 L D 8.1 L (8.5-10.1) mg/dL 07/12/20 Range/Units 06:10 WBC (4.5-11.0) K/uL RBC (3.30-5.50) M/uL Hgb (12.0-15.0) g/dL Hct (36.0-48.0) % MCV (80-98) fL MCH (27-31) pg MCHC (32-36) % Plt Count (150-400) K/uL Add Manual Diff Neutrophils % (Manual) (36-66) % Band Neutrophils % (5-11) % Lymphocytes % (Manual) (24-44) % Monocytes % (Manual) (2-6) % Eosinophils % (Manual) (2-4) % Sodium 139 L (140-148) mmol/L Potassium 3.5 L (3.6-5.2) mmol/L Chloride 107 (100-108) mmol/L Carbon Dioxide 20 L (21-32) mmol/L Anion Gap 15.5 H (5.0-14.0) mmol/L BUN 33 H (7-18) mg/dL Creatinine 1.6 H (0.6-1.0) mg/dL Est Cr Clr Drug Dosing 26.87 mL/min Estimated GFR (MDRD) 31 L (>60) Glucose 104 (74-106) mg/dL Calcium 8.4 L (8.5-10.1) mg/dL KULDIP Results - Last 24 hrs: Microbiology 07/11/20 18:37 Clostridioides difficile (PCR) - Final Stool / Feces 07/11/20 18:37 Stool for WBCs - Final Stool / Feces Med Orders - Current: Current Medications Acetaminophen (Tylenol) 650 mg PO Q4H PRN PRN Reason: Pain (Mild 1-3)/fever Last Admin: 07/12/20 09:01 Dose: 650 mg Documented by: Enoxaparin Sodium (Lovenox) 30 mg SUBCUT Q24H [facility] Last Admin: 07/11/20 16:16 Dose: 30 mg Documented by: Heparin Sodium (Porcine) (Heparin Lock Flush 100 Units/Ml) 500 units FLUSH ASDIRECTED PRN PRN Reason: PRN PORT FLUSH Last Admin: 07/12/20 11:57 Dose: 500 units Documented by: Sodium Chloride (Normal Saline) 1,000 mls @ 50 mls/hr IV ASDIRECTED [facility] Last Admin: 07/11/20 23:56 Dose: 50 mls/hr Documented by: Lactobacillus Rhamnosus (Culturelle) 1 cap PO BID [facility] Last Admin: 07/12/20 10:57 Dose: 1 cap Documented by: Loperamide HCl (Imodium) 2 mg PO ASDIRECTED PRN PRN Reason: Diarrhea Last Admin: 07/12/20 08:45 Dose: 2 mg Documented by: Ondansetron HCl (Zofran) 4 mg IV Q4H PRN PRN Reason: Nausea/Vomiting Discontinued Medications Diphenoxylate HCl/Atropine (Lomotil 0.025-2.5 Mg) 1 tab PO ONETIME ONE Stop: 07/11/20 06:32 Last Admin: 07/11/20 06:57 Dose: 1 tab Documented by: Sodium Chloride (Normal Saline) 1,000 mls [facility] Last Admin: 07/11/20 03:20 Dose: 500 mls/hr Documented by: Calcium Gluconate 2 gm/ Sodium (Chloride) 120 mls @ 100 mls/hr IV ONETIME ONE Stop: 07/11/20 05:38 Last Admin: 07/11/20 04:43 Dose: 100 mls/hr Documented by: Sodium Chloride (Normal Saline) 1,000 mls @ 150 mls/hr IV ASDIRECTED [facility] Last Admin: 07/11/20 05:45 Dose: 150 mls/hr Documented by: Sodium Chloride (Normal Saline) 1,000 mls @ 125 [facility] Last Admin: 07/11/20 07:28 Dose: 125 mls/hr Documented by: Potassium Chloride 20 meq/ (Premix) 100 mls @ 50 mls/hr IV ONETIME ONE Stop: 07/11/20 16:59 Last Admin: 07/11/20 15:21 Dose: 50 mls/hr Documented by: Potassium Chloride 20 meq/ (Premix) 100 mls @ 50 mls/hr IV ONETIME ONE Stop: 07/11/20 18:59 Last Admin: 07/11/20 19:00 Dose: 50 mls/hr Documented by: Potassium Chloride (Klor-Con M20) 40 meq PO ONETIME ONE Stop: 07/11/20 15:01 Last Admin: 07/11/20 15:14 Dose: 40 meq Documented by: Potassium Chloride (Klor-Con M20) 40 meq PO ONETIME ONE Stop: 07/11/20 23:16 Last Admin: 07/11/20 23:53 Dose: 40 meq Documented by: Potassium Chloride (Klor-Con M20) 40 meq PO ONETIME ONE Stop: 07/12/20 08:13 Last Admin: 07/12/20 08:46 Dose: 40 meq Documented by: - Exam General: Reports: Alert, Oriented HEENT: Reports: Pupils Equal, Pupils Reactive Neck: Reports: Supple Lungs: Reports: Clear to Auscultation, Normal Respiratory Effort Cardiovascular: Reports: Regular Rate, Regular Rhythm GI/Abdominal Exam: Soft, Non-Tender, No Organomegaly, No Distention, No Mass, Abnormal Bowel Sounds (hyperactive) (Female) Exam: Deferred Rectal (Female) Exam: Deferred Back Exam: Reports: Normal Inspection Extremities: Normal Inspection, Non-Tender, No Pedal Edema Skin: Reports: Warm, Dry, Intact Neurological: Reports: No New Focal Deficit
== END 2020-07-12 13:25 | disposition home or self-care (01) ==
LOC: JP.ED 03:11 → JP.MS 06:36
PROVIDERS: ADMIT Family Medicine; ATTEND Hospitalist
DX: R19.7 Diarrhea, unspecified (principal); C55 Malignant neoplasm of uterus, part unspecified; E86.0 Dehydration; N17.9 Acute kidney failure, unspecified; E87.6 Hypokalemia; E83.51 Hypocalcemia; R55 Syncope and collapse; Z88.8 Allergy status to other drugs, medicaments and biological substances; Z88.0 Allergy status to penicillin; Z79.899 Other long term (current) drug therapy; Z20.828 Contact with and (suspected) exposure to other viral communicable diseases
CPT/HCPCS: 36415; 80048; 80053; 81001; 82330; 85025; 87046; 87493; 87899; 89055; 93005; 93010; 96365; 99285-25; A9270-GY; J0610; J1642; J1650; J3480; J7030; U0002

== ENCOUNTER 2020-07-13 16:41 | Emergency (ER) | payer MEDICARE, BC ==
[2020-07-13] MEDS ORDERED: Lactated Ringers 1,000 ML IV ONE ×2 (18:40→20:00)
--- NOTE | 2020-07-13 18:43 | EDM.PDOC ---
ED HPI GENERAL MEDICAL PROBLEM - General Chief Complaint: General Stated Complaint: CONCERNED ABOUT DEHYDRATION Time Seen by Provider: 07/13/20 18:32 Source of Information: Reports: Patient, RN Notes Reviewed History Limitations: Reports: No Limitations - History of Present Illness INITIAL COMMENTS - FREE TEXT/NARRATIVE: 74-year-old female presents emergency department today complaint of diarrhea, she is currently undergoing treatment for uterine cancer has done a chemotherapy earlier this spring underwent surgery now has completed the course of her treatment with radiation the majority of June. One of the side effects she has experienced in the radiation is severe diarrhea she has had this for about 3 weeks does get severely dehydrated at this time she feels dehydrated and weak. Was in the hospital 2 days prior for rehydration Covid test was negative at that time - Related Data Allergies Allergy/AdvReac Type Severity Reaction Status Date / Time cephalexin [From Keflex] Allergy Severe Hives Verified 07/13/20 17:24 Penicillins Allergy Severe Hives Verified 07/13/20 17:24 Home Meds: Home Meds atenoloL [Atenolol] 25 mg PO DAILY 12/29/19 [History] Loperamide [Imodium] 2 mg PO ASDIRECTED PRN cap 07/12/20 [Rx] Potassium Chloride 20 meq PO BID #60 tablet.er 07/12/20 [Rx] Past Medical History Cardiovascular History: Reports: High Cholesterol, Hypertension Other Gastrointestinal History: current diarrhea due to radiation therapy [employer] History: Reports: , Other (See Below) Other [employer] History: ovarian cancer Musculoskeletal History: Reports: Fracture Other Musculoskeletal History: fx wrist Hematologic History: Reports: Blood Transfusion(s) Immunologic History: Reports: Immunosuppression Oncologic (Cancer) History: Reports: Ovarian - Infectious Disease History Infectious Disease History: Reports: Chicken Pox, Measles, Mumps - Past Surgical History Female Surgical History: Reports: Hysterectomy Social & Family History - Tobacco Use Tobacco Use Status *Q: Never Tobacco User - Caffeine Use Caffeine Use: Reports: Coffee, Soda, Tea - Recreational Drug Use Recreational Drug Use: No ED ROS GENERAL - Review of Systems Review Of Systems: See Below Constitutional: Reports: Weakness. Denies: Fever, Chills Respiratory: Reports: No Symptoms Cardiovascular: Reports: No Symptoms GI/Abdominal: Reports: Diarrhea. Denies: Abdominal Pain, Nausea, Vomiting ED EXAM, GENERAL - Physical Exam Exam: See Below Exam Limited By: No Limitations General Appearance: Alert, WD/WN, No Apparent Distress Respiratory/Chest: No Respiratory Distress, Lungs Clear, Normal Breath Sounds, No Accessory Muscle Use, Chest Non-Tender Cardiovascular: Regular Rate, Rhythm, No Murmur GI/Abdominal: Soft, Non-Tender Course - Vital Signs Last Recorded V/S: Last Vital Signs Temp 96.8 F L 07/13/20 17:16 Pulse 102 H 07/13/20 19:51 Resp 16 07/13/20 19:51 BP 110/75 07/13/20 19:51 Pulse Ox 96 07/13/20 19:51 - Orders/Labs/Meds Orders: Active Orders 24 hr Category Date Time Status Heparin Sodium [Heparin Lock Flush 100 Units/ML] Med 07/13/20 21:16 Active 500 units FLUSH ASDIRECTED PRN Medication Orders Heparin Sodium (Porcine) (Heparin Lock Flush 100 Units/Ml) 500 units FLUSH ASDIRECTED PRN PRN Reason: port Last Admin: 07/13/20 21:26 Dose: 500 units Documented by: LAUREN Labs: Laboratory Tests 07/13/20 07/13/20 Range/Units 19:09 19:09 WBC 3.9 L (4.5-11.0) K/uL RBC 4.95 (3.30-5.50) M/uL Hgb 14.9 (12.0-15.0) g/dL Hct 45.6 (36.0-48.0) % MCV 92 (80-98) fL MCH 30 (27-31) pg MCHC 33 (32-36) % Plt Count 195 (150-400) K/uL Neut % (Auto) 70 H (36-66) % Lymph % (Auto) 10 L (24-44) % Emmons % (Auto) 18 H (2-6) % Eos % (Auto) 2 (2-4) % Baso % (Auto) 0 (0-1) % Sodium 135 L (140-148) mmol/L Potassium 3.8 (3.6-5.2) mmol/L Chloride 100 (100-108) mmol/L Carbon Dioxide 21 (21-32) mmol/L Anion Gap 17.8 H (5.0-14.0) mmol/L BUN 40 H (7-18) mg/dL Creatinine 2.2 H (0.6-1.0) mg/dL Est Cr Clr Drug Dosing 19.97 mL/min Estimated GFR (MDRD) 22 L (>60) Glucose 153 H (74-106) mg/dL Calcium 9.7 D (8.5-10.1) mg/dL Total Bilirubin 0.2 (0.2-1.0) mg/dL AST 21 (15-37) U/L ALT 49 (12-78) U/L Alkaline Phosphatase 80 (46-116) U/L Total Protein 8.1 (6.4-8.2) g/dL Albumin 4.1 (3.4-5.0) g/dL Globulin 4.0 H (2.3-3.5) g/dL Albumin/Globulin Ratio 1.0 L (1.2-2.2) Meds: Medications Generic Name Dose Route Start Last Admin Trade Name Freq PRN Reason Stop Dose Admin Heparin Sodium (Porcine) 500 units 07/13/20 21:16 07/13/20 21:26 Heparin Lock Flush 100 Units/Ml FLUSH 500 units ASDIRECTED PRN Administration port Discontinued Medications Generic Name Dose Route Start Last Admin Trade Name Freq PRN Reason Stop Dose Admin Lactated Ringer's 1,000 mls @ 999 mls/hr 07/13/20 18:40 07/13/20 18:59 Ringers, Lactated IV 07/13/20 19:40 999 mls/hr BOLUS ONE Administration Lactated Ringer's 1,000 mls @ 999 mls/hr 07/13/20 20:00 07/13/20 20:20 Ringers, Lactated IV 07/13/20 21:00 999 mls/hr BOLUS ONE Administration Departure - Departure Time of Disposition: 21:30 Disposition: Home, Self-Care 01 Condition: Fair Clinical Impression: Severe dehydration - Discharge Information Instructions: Dehydration, Adult, [id number] Referrals: Rhina Woods PA [Primary Care Provider] - Forms: ED Department Discharge Additional Instructions: Continue with regular medications, keep follow appointments with primary care call return to the emergency department worsening of symptoms Sepsis Event Note (ED) - Evaluation Sepsis Screening Result: No Definite Risk - Focused Exam Vital Signs: Vital Signs Temp Pulse Resp BP Pulse Ox 07/13/20 19:51 102 H 16 110/75 96 07/13/20 18:27 107 H 100/60 97 07/13/20 17:50 105 H 94/58 L 94 L 07/13/20 17:34 109 H 16 104/73 95 07/13/20 17:16 96.8 F L 110 H 16 104/73 93 L - My Orders Last 24 Hours: My Active Orders 07/13/20 21:16 Heparin Sodium [Heparin Lock Flush 100 Units/ML] 500 units FLUSH ASDIRECTED PRN - Assessment/Plan Last 24 Hours: My Active Orders 07/13/20 21:16 Heparin Sodium [Heparin Lock Flush 100 Units/ML] 500 units FLUSH ASDIRECTED PRN Plan: Assessment Acuity = acute Site and laterality = dehydration Etiology = probably related to ongoing radiation treatment for cancer Manifestations = none Location of injury = Home Lab values = CBC unremarkable creatinine elevated 2.2 consistent with chronic renal failure stage G4 Plan Good improvement 2 L of lactated Ringer's keep follow-up appointments with primary care This note was dictated using [employer] voice recognition software please call with any questions on syntax or grammar.
== END 2020-07-13 21:38 | disposition home or self-care (01) ==
LOC: JP.ED 16:41
DX: E86.0 Dehydration (principal); I10 Essential (primary) hypertension; Z88.1 Allergy status to other antibiotic agents; Z88.0 Allergy status to penicillin; Z79.899 Other long term (current) drug therapy
CPT/HCPCS: 36415; 80053; 85025; 99284; C1751; J1642; J7120

== ENCOUNTER 2022-07-08 09:43 | Emergency (ER) | payer MEDICARE, BC ==
[2022-07-08 11:44] LABS: ESTIMATED GFR 42 mL/min (>60)
[2022-07-08] MEDS ORDERED: Sodium Chloride 0.9% 1,000 ML IV SCH ×2 (11:45→13:15)
[2022-07-08] MEDS ORDERED: HYDROmorphone 0.5 MG/0.5 ML Syringe IVPUSH ONE (11:49)
[2022-07-08] MEDS ORDERED: Potassium Chloride 10 MEQ in Premix Bag 1 BAG IV ONE (12:13)
[2022-07-08] MEDS ORDERED: Magnesium Oxide 400 MG Tab PO ONE (12:14)
[2022-07-08] MEDS ORDERED: Hydrochlorothiazide/Triamterene 25-37.5 Tab PO ONE (12:16)
[2022-07-08] MEDS ORDERED: Atenolol 25 MG Tab PO ONE (12:17)
[2022-07-08] MEDS ORDERED: Sodium Chloride 0.9% 100 ML IV ONE (14:58)
[2022-07-08] MEDS ORDERED: Sodium Chloride 0.9% 10 ML Syringe FLUSH PRN (14:58)
[2022-07-08] MEDS ORDERED: Iopamidol 755 Mg/ML 100 ML Bottle IV SCH (15:00)
== END 2022-07-08 15:45 | disposition home or self-care (01) ==
LOC: JP.ED 09:43
DX: E86.0 Dehydration (principal); E87.6 Hypokalemia; E83.42 Hypomagnesemia; C56.9 Malignant neoplasm of unspecified ovary; I10 Essential (primary) hypertension; Z88.1 Allergy status to other antibiotic agents; Z88.0 Allergy status to penicillin; Z79.899 Other long term (current) drug therapy; Z90.710 Acquired absence of both cervix and uterus
CPT/HCPCS: 36415; 80053; 81001; 83735; 85025; 86140; 96361; 96365; 96375; 99283; A9270; J1170; J1642; J3480; J7030

== ENCOUNTER 2023-02-27 10:45 | Emergency (ER) | payer MEDICARE, BC ==
[2023-02-27 12:38] LABS: BASOPHILS PERCENT AUTO 0.8 % (0.1-1.3); EOSINOPHILS ABSOLUTE AUTO 0.05 K/uL (0.00-0.40); HEMATOCRIT 28.8 % (34.3-46.0); HEMOGLOBIN 9.7 g/dL (11.2-15.5); IMMATURE GRAN PERCENT AUTO 0.4 % (0.0-0.7); LYMPHOCYTES ABSOLUTE AUTO 0.44 K/uL (0.8-3.3); MEAN CORPUSCULAR HEMOGLOBIN 35.1 pg (31.6-35.5); MEAN CORPUSCULAR HGB CONC 33.7 g/dL (31.6-35.5); MEAN CORPUSCULAR VOLUME 104.3 fL (81.4-99.0); MONOCYTES ABSOLUTE AUTO 0.23 K/uL (0.20-0.90); MONOCYTES PERCENT AUTO 9.4 % (3.3-12.6); NEUTROPHILS ABSOLUTE AUTO 1.69 K/uL (1.0-7.6); NEUTROPHILS PERCENT AUTO 69.4 % (40.0-78.1); PLATELET COUNT,PLT 78 K/uL (130-375); RED BLOOD CELL COUNT 2.76 M/uL (3.77-5.24); WHITE BLOOD CELL COUNT,WBC 2.4 K/uL (3.2-11.0)
[2023-02-27 12:40] LABS: BASOPHILS ABSOLUTE AUTO 0.02 K/uL (0.00-0.10); IMMATURE GRAN ABSOLUTE AUTO 0.01 K/uL (0.00-0.23)
[2023-02-27 12:52] LABS: CALCIUM 9.4 mg/dL (8.5-10.1); CREATININE 1.5 mg/dL (0.6-1.0); EST CRCL DRUG DOSING (CG) 27.36 mL/min; POTASSIUM,K 3.7 mmol/L (3.6-5.2)
[2023-02-27 12:53] LABS: ANION GAP 6.7 mmol/L (5.0-14.0)
== END 2023-02-27 14:31 | disposition home or self-care (01) ==
LOC: JP.ED 10:45
DX: M54.32 Sciatica, left side (principal); I10 Essential (primary) hypertension; Z88.1 Allergy status to other antibiotic agents; Z88.0 Allergy status to penicillin; Z86.16 Personal history of COVID-19
CPT/HCPCS: 36415; 80048; 85025; 99283

== ENCOUNTER 2023-05-08 10:08 | Emergency (ER) | payer MEDICARE, BC ==
[2023-05-08] MEDS ORDERED: Sodium Chloride 0.9% 1,000 ML IV ONE (13:20)
[2023-05-08 13:25] LABS: BASOPHILS PERCENT AUTO 0.1 % (0.1-1.3); HEMATOCRIT 15.6 % (34.3-46.0); IMMATURE GRAN ABSOLUTE AUTO 0.14 K/uL (0.00-0.23); LYMPHOCYTES ABSOLUTE AUTO 1.02 K/uL (0.8-3.3); LYMPHOCYTES PERCENT AUTO 7.1 % (11.4-47.7); MEAN CORPUSCULAR HEMOGLOBIN 35.7 pg (31.6-35.5); MEAN CORPUSCULAR HGB CONC 32.1 g/dL (31.6-35.5); MEAN CORPUSCULAR VOLUME 111.4 fL (81.4-99.0); MONOCYTES ABSOLUTE AUTO 0.89 K/uL (0.20-0.90); MONOCYTES PERCENT AUTO 6.2 % (3.3-12.6); NEUTROPHILS ABSOLUTE AUTO 12.26 K/uL (1.0-7.6); NEUTROPHILS PERCENT AUTO 85.6 % (40.0-78.1); PLATELET COUNT,PLT 181 K/uL (130-375); WHITE BLOOD CELL COUNT,WBC 14.3 K/uL (3.2-11.0)
[2023-05-08 13:37] LABS: BASOPHILS ABSOLUTE AUTO 0.01 K/uL (0.00-0.10)
[2023-05-08 13:41] LABS: ANION GAP 15.5 mmol/L (5.0-14.0); BLOOD UREA NITROGEN,BUN 37 mg/dL (7-18); CALCIUM 9.1 mg/dL (8.5-10.1); CARBON DIOXIDE,CO2 27 mmol/L (21-32); CHLORIDE,CL 98 mmol/L (100-108); ESTIMATED GFR 25 mL/min (>60); GLUCOSE RANDOM 128 mg/dL (74-106); POTASSIUM,K 4.5 mmol/L (3.6-5.2); SODIUM,NA 136 mmol/L (140-148)
[2023-05-08] MEDS ORDERED: Naloxone 0.4 MG/ML SDV IVPUSH PRN (16:38)
[2023-05-08] MEDS ORDERED: HYDROmorphone 0.5 MG/0.5 ML Syringe IM ONE (16:38)
== END 2023-05-08 20:57 | disposition home or self-care (01) ==
LOC: JP.ED 10:08
DX: D64.9 Anemia, unspecified (principal); I10 Essential (primary) hypertension; Z86.16 Personal history of COVID-19; Z88.0 Allergy status to penicillin; Z88.1 Allergy status to other antibiotic agents; Z79.01 Long term (current) use of anticoagulants; Z79.899 Other long term (current) drug therapy
CPT/HCPCS: 36415; 36430; 80048; 85018; 85025; 86850; 86900; 86901; 86920; 86922; 96360; 96372; 99283; J1170; J7030; P9016

== ENCOUNTER 2023-05-09 18:26 | Emergency (ER) | payer MEDICARE, BC ==
[2023-05-09] MEDS ORDERED: traMADol 50 MG Tab PO ONE (19:32)
== END 2023-05-09 20:32 | disposition home or self-care (01) ==
LOC: JP.ED 18:26
DX: M54.32 Sciatica, left side (principal); E78.00 Pure hypercholesterolemia, unspecified; I10 Essential (primary) hypertension; Z86.16 Personal history of COVID-19; Z88.1 Allergy status to other antibiotic agents; Z88.0 Allergy status to penicillin; Z79.01 Long term (current) use of anticoagulants
CPT/HCPCS: 99283; A9270

== ENCOUNTER 2023-05-10 07:28 | Inpatient (IN) | payer MEDICARE, BC ==
[2023-05-10 08:09] LABS: HEMATOCRIT 17.2 % (34.3-46.0); IMMATURE GRAN ABSOLUTE AUTO 0.07 K/uL (0.00-0.23); IMMATURE GRAN PERCENT AUTO 0.7 % (0.0-0.7); LYMPHOCYTES ABSOLUTE AUTO 0.51 K/uL (0.8-3.3); LYMPHOCYTES PERCENT AUTO 5.4 % (11.4-47.7); MEAN CORPUSCULAR HEMOGLOBIN 34.4 pg (31.6-35.5); MEAN CORPUSCULAR HGB CONC 32.6 g/dL (31.6-35.5); MEAN CORPUSCULAR VOLUME 105.5 fL (81.4-99.0); MONOCYTES ABSOLUTE AUTO 0.67 K/uL (0.20-0.90); MONOCYTES PERCENT AUTO 7.1 % (3.3-12.6); NEUTROPHILS ABSOLUTE AUTO 8.16 K/uL (1.0-7.6); NEUTROPHILS PERCENT AUTO 86.8 % (40.0-78.1); PLATELET COUNT,PLT 147 K/uL (130-375); RED BLOOD CELL COUNT 1.63 M/uL (3.77-5.24); WHITE BLOOD CELL COUNT,WBC 9.4 K/uL (3.2-11.0)
[2023-05-10 08:15] LABS: HEMOGLOBIN 5.6 g/dL (11.2-15.5)
[2023-05-10 08:24] LABS: BLOOD UREA NITROGEN,BUN 43 mg/dL (7-18); CALCIUM 8.7 mg/dL (8.5-10.1); CARBON DIOXIDE,CO2 29 mmol/L (21-32); CHLORIDE,CL 100 mmol/L (100-108); ESTIMATED GFR 25 mL/min (>60); GLUCOSE RANDOM 110 mg/dL (74-106); POTASSIUM,K 4.5 mmol/L (3.6-5.2); SODIUM,NA 135 mmol/L (140-148)
[2023-05-10 08:25] LABS: ANION GAP 10.5 mmol/L (5.0-14.0)
[2023-05-10] MEDS ORDERED: Sodium Chloride 0.9% 10 ML Syringe FLUSH PRN ×2 (08:33→10:49)
[2023-05-10] MEDS ORDERED: Sodium Chloride 0.9% 500 ML IV ONE (09:06)
[2023-05-10] MEDS ORDERED: Polyethylene Glycol 3350 Powder 17 GM Packet PO PRN (10:49)
[2023-05-10] MEDS ORDERED: Sodium Chloride 0.9% 1,000 ML IV SCH (10:49)
[2023-05-10] MEDS ORDERED: Ondansetron 4 MG/2 ML SDV IV PRN (10:49)
[2023-05-10] MEDS: Atenolol 25 MG Tab PO SCH (11:30)
[2023-05-10] MEDS: Acetaminophen 325 MG Tab PO PRN ×3 (11:31→20:52)
[2023-05-10] MEDS: Pantoprazole 40 MG Vial IVPUSH SCH ×2 (11:31→20:52)
[2023-05-10] MEDS: traMADol 50 MG Tab PO PRN ×3 (11:31→20:52)
[2023-05-10] MEDS ORDERED: Bisacodyl 5 MG Tab PO ONE ×2 (12:23→20:00)
[2023-05-10 12:47] LABS: IRON,FE 48 ug/dL (50-170); PERCENT FE SATURATION 16 % (20-55); TOTAL IRON BINDING CAPACITY 294 ug/dl (250-450)
[2023-05-10 13:13] LABS: FOLIC ACID 9.6 ng/ml (8.6-58.9)
[2023-05-10 16:56] LABS: RETICULOCYTE COUNT PERCENT 5.7 % (0.03-0.11)
[2023-05-10] MEDS ORDERED: Polyethylene Glycol 3350 Powder 238 GM Bot PO ONE (17:00)
[2023-05-10] MEDS: Potassium Chloride 20 MEQ Tab.ER PO SCH (17:00)
[2023-05-10] MEDS: Magnesium Oxide 400 MG Tab PO SCH (20:53)
[2023-05-11 04:17] LABS: HEMATOCRIT 23.3 % (34.3-46.0); HEMOGLOBIN 7.6 g/dL (11.2-15.5); MEAN CORPUSCULAR HEMOGLOBIN 31.4 pg (31.6-35.5); MEAN CORPUSCULAR HGB CONC 32.6 g/dL (31.6-35.5); MEAN CORPUSCULAR VOLUME 96.3 fL (81.4-99.0); RED BLOOD CELL COUNT 2.42 M/uL (3.77-5.24)
[2023-05-11 04:36] LABS: CALCIUM 8.4 mg/dL (8.5-10.1); CREATININE 1.7 mg/dL (0.6-1.0); EST CRCL DRUG DOSING (CG) 24.15 mL/min; MAGNESIUM 1.9 mg/dL (1.8-2.4); POTASSIUM,K 4.3 mmol/L (3.6-5.2)
[2023-05-11 05:08] LABS: ANION GAP 11.3 mmol/L (5.0-14.0)
[2023-05-11] MEDS ORDERED: Bisacodyl 5 MG Tab PO ONE ×2 (09:00→20:00)
[2023-05-11] MEDS: Potassium Chloride 20 MEQ Tab.ER PO SCH ×2 (10:15→16:14)
[2023-05-11] MEDS: Magnesium Oxide 400 MG Tab PO SCH ×2 (10:15→20:36)
[2023-05-11] MEDS: Atenolol 25 MG Tab PO SCH (10:16)
[2023-05-11] MEDS: Pantoprazole 40 MG Vial IVPUSH SCH ×2 (10:17→20:36)
[2023-05-11] MEDS: traMADol 50 MG Tab PO PRN ×3 (11:55→20:53)
[2023-05-11] MEDS: Acetaminophen 325 MG Tab PO PRN (13:01)
[2023-05-11] MEDS ORDERED: Sodium Ferric Gluconate Cmplex 250 MG in Sodium Chloride 0.9% 100 ML IV ONE (15:45)
[2023-05-11] MEDS: Ferrous Sulfate 325 MG Tab PO SCH (16:12)
[2023-05-11] MEDS ORDERED: Polyethylene Glycol 3350 Powder 238 GM Bot PO ONE (17:00)
[2023-05-12] MEDS ORDERED: Sodium Chloride 0.9% 1,000 ML IV SCH (00:01)
[2023-05-12 05:22] LABS: HEMATOCRIT 24.3 % (34.3-46.0); HEMOGLOBIN 7.8 g/dL (11.2-15.5); MEAN CORPUSCULAR HEMOGLOBIN 31.2 pg (31.6-35.5); MEAN CORPUSCULAR HGB CONC 32.1 g/dL (31.6-35.5); MEAN CORPUSCULAR VOLUME 97.2 fL (81.4-99.0); RED BLOOD CELL COUNT 2.5 M/uL (3.77-5.24); WHITE BLOOD CELL COUNT,WBC 7.5 K/uL (3.2-11.0)
[2023-05-12 05:40] LABS: CALCIUM 8.6 mg/dL (8.5-10.1); CREATININE 1.6 mg/dL (0.6-1.0); EST CRCL DRUG DOSING (CG) 25.65 mL/min
[2023-05-12] MEDS ORDERED: Sodium Chloride 0.9% 10 ML SDV FLUSH ONE (07:07)
[2023-05-12] MEDS ORDERED: Iopamidol 612 MG/ML 100 ML Bottle IV PRN (07:07)
[2023-05-12] MEDS ORDERED: Sodium Chloride 0.9% 100 ML IV SCH (07:15)
[2023-05-12 07:43] LABS: INR 1.1
[2023-05-12] MEDS ORDERED: Propofol 200 MG/20 ML SDV ONE (08:29)
[2023-05-12] MEDS: Pantoprazole 40 MG Vial IVPUSH SCH (10:00)
[2023-05-12] MEDS ORDERED: fentaNYL 100 MCG/2 ML SDV ONE (10:01)
[2023-05-12] MEDS: Ferrous Sulfate 325 MG Tab PO SCH ×2 (13:13→16:38)
[2023-05-12] MEDS: Potassium Chloride 20 MEQ Tab.ER PO SCH ×2 (13:14→16:39)
[2023-05-12] MEDS: Magnesium Oxide 400 MG Tab PO SCH (13:14)
[2023-05-12] MEDS: Acetaminophen 325 MG Tab PO PRN (13:17)
[2023-05-12] MEDS: Atenolol 25 MG Tab PO SCH (13:17)
[2023-05-12] MEDS: traMADol 50 MG Tab PO PRN ×2 (14:30→19:02)
[2023-05-12] MEDS ORDERED: Sodium Ferric Gluconate Cmplex 250 MG in Sodium Chloride 0.9% 100 ML IV ONE (16:00)
[2023-05-12] MEDS ORDERED: Sucralfate Suspension 1 GM/10 ML Cup PO SCH (17:00)
== END 2023-05-12 19:26 | DRG 378 ==
LOC: JP.ED 07:28 → JP.MS 09:11
PROVIDERS: ADMIT Hospitalist; ATTEND Hospitalist
PROC: 30233N1 Transfusion of Nonautologous Red Blood Cells into Peripheral Vein, Percutaneous Approach (ICD-10-PCS; 2023-05-10)
PROC: 0DB48ZX Excision of Esophagogastric Junction, Via Natural or Artificial Opening Endoscopic, Diagnostic (ICD-10-PCS; principal; 2023-05-12)
DX: R53.1 Weakness (principal); E86.0 Dehydration; K25.0 Acute gastric ulcer with hemorrhage; D64.9 Anemia, unspecified; C56.9 Malignant neoplasm of unspecified ovary; I82.401 Acute embolism and thrombosis of unspecified deep veins of right lower extremity; M54.32 Sciatica, left side; C56.3 Malignant neoplasm of bilateral ovaries; D62 Acute posthemorrhagic anemia; D84.9 Immunodeficiency, unspecified; R18.0 Malignant ascites; I82.4Y1 Acute embolism and thrombosis of unspecified deep veins of right proximal lower extremity; K22.2 Esophageal obstruction; K20.90 Esophagitis, unspecified without bleeding; K64.5 Perianal venous thrombosis; E78.00 Pure hypercholesterolemia, unspecified; M54.42 Lumbago with sciatica, left side; I12.9 Hypertensive chronic kidney disease with stage 1 through stage 4 chronic kidney disease, or unspecified chronic kidney disease; N18.32 Chronic kidney disease, stage 3b; I95.89 Other hypotension; Z20.822 Contact with and (suspected) exposure to COVID-19; M54.16 Radiculopathy, lumbar region; K44.9 Diaphragmatic hernia without obstruction or gangrene; Z88.0 Allergy status to penicillin; Z88.8 Allergy status to other drugs, medicaments and biological substances; Z79.899 Other long term (current) drug therapy; Z79.01 Long term (current) use of anticoagulants; Z86.16 Personal history of COVID-19; Z90.710 Acquired absence of both cervix and uterus; Z90.722 Acquired absence of ovaries, bilateral; Z90.79 Acquired absence of other genital organ(s)
CPT/HCPCS: 36415; 80048; 82272; 82607; 82728; 82746; 83010; 83550; 85025; 86850; 86900; 86901; 86920 ×2; 86922 ×2; U0002; 36430; 71260; 71260-26; 74177; 74177-26; 83615; 83735; 85018; 85027; 85045; 85610; 88305; 93005; 99222; 99232; 99238; 99285; A9270-GY; C9113; J2405; J2704; J2916; J3010; J3490; J7030; J7040; P9016

== ENCOUNTER 2023-07-11 12:05 | Emergency (ER) | payer MEDICARE, BC ==
[2023-07-11 13:07] LABS: BASOPHILS ABSOLUTE AUTO 0.01 K/uL (0.00-0.10); BASOPHILS PERCENT AUTO 0.1 % (0.1-1.3); HEMATOCRIT 21.3 % (34.3-46.0); IMMATURE GRAN ABSOLUTE AUTO 0.34 K/uL (0.00-0.23); IMMATURE GRAN PERCENT AUTO 3.5 % (0.0-0.7); LYMPHOCYTES ABSOLUTE AUTO 0.71 K/uL (0.8-3.3); LYMPHOCYTES PERCENT AUTO 7.2 % (11.4-47.7); MEAN CORPUSCULAR HGB CONC 32.9 g/dL (31.6-35.5); MEAN CORPUSCULAR VOLUME 103.4 fL (81.4-99.0); MONOCYTES ABSOLUTE AUTO 0.81 K/uL (0.20-0.90); MONOCYTES PERCENT AUTO 8.3 % (3.3-12.6); NEUTROPHILS ABSOLUTE AUTO 7.93 K/uL (1.0-7.6); NEUTROPHILS PERCENT AUTO 80.9 % (40.0-78.1); PLATELET COUNT,PLT 123 K/uL (130-375); RED BLOOD CELL COUNT 2.06 M/uL (3.77-5.24); WHITE BLOOD CELL COUNT,WBC 9.8 K/uL (3.2-11.0)
[2023-07-11] MEDS ORDERED: Sodium Chloride 0.9% 1,000 ML IV ONE (13:16)
[2023-07-11 13:31] LABS: A/G RATIO 0.8 (1.2-2.2); ALBUMIN 2.2 g/dL (3.4-5.0); BILIRUBIN DIRECT 0.16 mg/dL (0.0-0.2); BILIRUBIN INDIRECT 0.24; BILIRUBIN TOTAL 0.4 mg/dL (0.2-1.0); PROTEIN TOTAL,TP 5.1 g/dL (6.4-8.2)
[2023-07-11 13:32] LABS: C-REACTIVE PROTEIN 2.81 mg/dL (0.0-0.3); CALCIUM 8.4 mg/dL (8.5-10.1); CREATININE 1.6 mg/dL (0.6-1.0); EST CRCL DRUG DOSING (CG) 26.17 mL/min; MAGNESIUM 1.7 mg/dL (1.8-2.4)
[2023-07-11] MEDS ORDERED: Sodium Chloride 0.9% 50 ML IV ONE (14:30)
[2023-07-11] MEDS ORDERED: Iopamidol 612 MG/ML 100 ML Bottle IV ONE (14:30)
[2023-07-11] MEDS ORDERED: Sodium Chloride 0.9% 10 ML Syringe FLUSH ONE (14:30)
[2023-07-11] MEDS ORDERED: Ondansetron 4 MG/2 ML SDV IVPUSH ONE (20:15)
[2023-07-11 21:42] LABS: INFLUENZA A NAA NEGATIVE (NEGATIVE); INFLUENZA B NAA NEGATIVE (NEGATIVE); RESPIRATORY SYNCYTIAL VIR NAA NEGATIVE (NEGATIVE)
[2023-07-11 21:44] LABS: CORONAVIRUS COVID-19 NAA POSITIVE (NEGATIVE)
[2023-07-11] MEDS ORDERED: Sodium Chloride 0.9% 1,000 ML IV SCH (22:03)
[2023-07-11] MEDS ORDERED: Ondansetron 4 MG/2 ML SDV IV PRN (22:03)
[2023-07-11] MEDS ORDERED: Sennosides/Docusate Sodium 50-8.6 MG Tab PO PRN (22:03)
[2023-07-11] MEDS ORDERED: Acetaminophen 325 MG Tab PO PRN (22:03)
[2023-07-11] MEDS ORDERED: Ondansetron 4 MG Tab.DIS PO PRN (22:03)
[2023-07-11] MEDS ORDERED: Magnesium Hydroxide 400 MG/5 ML Susp 30 ML Cup PO PRN (22:03)
[2023-07-11] MEDS ORDERED: traMADol 50 MG Tab PO PRN (22:03)
[2023-07-11] MEDS: traMADol 50 MG Tab PO PRN (23:07)
[2023-07-11] MEDS ORDERED: Melatonin 3 MG Tab PO ONE (23:28)
[2023-07-12] MEDS ORDERED: Loperamide 2 MG Cap PO PRN (01:24)
[2023-07-12 05:01] LABS: BASOPHILS PERCENT AUTO 0.2 % (0.1-1.3); HEMATOCRIT 24.3 % (34.3-46.0); HEMOGLOBIN 8.1 g/dL (11.2-15.5); IMMATURE GRAN ABSOLUTE AUTO 0.41 K/uL (0.00-0.23); IMMATURE GRAN PERCENT AUTO 4.3 % (0.0-0.7); LYMPHOCYTES ABSOLUTE AUTO 0.91 K/uL (0.8-3.3); LYMPHOCYTES PERCENT AUTO 9.5 % (11.4-47.7); MEAN CORPUSCULAR HGB CONC 33.3 g/dL (31.6-35.5); MEAN CORPUSCULAR VOLUME 93.1 fL (81.4-99.0); MONOCYTES ABSOLUTE AUTO 1.12 K/uL (0.20-0.90); MONOCYTES PERCENT AUTO 11.7 % (3.3-12.6); NEUTROPHILS PERCENT AUTO 74.3 % (40.0-78.1); PLATELET COUNT,PLT 100 K/uL (130-375); RED BLOOD CELL COUNT 2.61 M/uL (3.77-5.24); WHITE BLOOD CELL COUNT,WBC 9.6 K/uL (3.2-11.0)
[2023-07-12 05:19] LABS: CALCIUM 8.2 mg/dL (8.5-10.1); CREATININE 1.6 mg/dL (0.6-1.0); EST CRCL DRUG DOSING (CG) 25.65 mL/min; POTASSIUM,K 5.5 mmol/L (3.6-5.2)
[2023-07-12 05:37] LABS: BASOPHILS ABSOLUTE AUTO 0.02 K/uL (0.00-0.10)
[2023-07-12 05:38] LABS: ANION GAP 12.5 mmol/L (5.0-14.0)
[2023-07-12] MEDS ORDERED: Sucralfate 1 GM Tab PO SCH ×2 (06:00→11:00)
[2023-07-12 06:09] LABS: APPEARANCE,URINE CLEAR (CLEAR); BILIRUBIN,URINE SMALL (NEGATIVE); COLOR,URINE YELLOW (YELLOW); GLUCOSE,URINE NEGATIVE (NEGATIVE); KETONES,URINE NEGATIVE (NEGATIVE); LEUKOCYTE ESTERASE,URINE NEGATIVE (NEGATIVE); NITRITE,URINE NEGATIVE (NEGATIVE); OCCULT BLOOD,URINE NEGATIVE (NEGATIVE); PROTEIN,URINE NEGATIVE (NEGATIVE); UROBILINOGEN,URINE 0.2 EU/dL (0.2-1.0)
[2023-07-12 06:18] LABS: AMORPHOUS SEDIMENT,URINE FEW; BACTERIA,URINE FEW; EPITHELIAL CELLS,URINE FEW; MUCUS,URINE FEW; RBC,URINE 0-5 (0-5); WBC,URINE 0-5 (0-5)
[2023-07-12] MEDS ORDERED: Pantoprazole 40 MG Tab.CR PO SCH (07:30)
[2023-07-12] MEDS ORDERED: Potassium Chloride 20 MEQ Tab.ER PO SCH (08:00)
[2023-07-12] MEDS ORDERED: Ferrous Sulfate 325 MG Tab PO SCH (08:00)
[2023-07-12] MEDS ORDERED: Enoxaparin 80 MG/0.8 ML Syringe SUBCUT SCH ×2 (09:00)
[2023-07-12] MEDS ORDERED: Magnesium Oxide 400 MG Tab PO SCH (09:00)
[2023-07-12] MEDS ORDERED: Atenolol 25 MG Tab PO SCH (09:00)
[2023-07-12] MEDS ORDERED: Sulfamethoxazole/Trimethoprim 800-160 MG Tab PO SCH ×2 (09:00)
[2023-07-12] MEDS ORDERED: Furosemide 40 MG Tab PO SCH (09:00)
[2023-07-12] MEDS: traMADol 50 MG Tab PO PRN (12:01)
[2023-07-12] MEDS ORDERED: Melatonin 3 MG Tab PO SCH (21:00)
== END 2023-07-12 13:10 | disposition home or self-care (01) ==
LOC: JP.ED 12:05 → JP.MS 21:26
PROVIDERS: ADMIT Registered Nurse; ATTEND Internal Medicine
DX: D64.81 Anemia due to antineoplastic chemotherapy (principal); T45.1X5A Adverse effect of antineoplastic and immunosuppressive drugs, initial encounter; U07.1 COVID-19; L03.115 Cellulitis of right lower limb; C56.3 Malignant neoplasm of bilateral ovaries; I12.9 Hypertensive chronic kidney disease with stage 1 through stage 4 chronic kidney disease, or unspecified chronic kidney disease; N18.32 Chronic kidney disease, stage 3b; I82.4Y1 Acute embolism and thrombosis of unspecified deep veins of right proximal lower extremity; K29.01 Acute gastritis with bleeding; R53.81 Other malaise; E78.00 Pure hypercholesterolemia, unspecified; Z79.899 Other long term (current) drug therapy; Z88.0 Allergy status to penicillin
CPT/HCPCS: 0241U; 36415; 36430; 71260; 74177; 80048; 80076; 81001; 83605; 83735; 84484; 85018; 85025; 86140; 86850; 86900; 86901; 86920; 86922; 93005; 96360; 96372; 97161; 99222; 99238; 99285; A9270; G0378; J1650; J3490; J7030; P9016; Q9967

== ENCOUNTER 2023-07-15 12:02 | Emergency (ER) | payer MEDICARE, BC ==
[2023-07-15] MEDS ORDERED: Sodium Chloride 0.9% 10 ML Syringe FLUSH PRN ×2 (12:59→16:40)
[2023-07-15] MEDS ORDERED: Sodium Chloride 0.9% 1,000 ML IV SCH ×2 (13:00→16:40)
[2023-07-15 13:16] LABS: BASOPHILS PERCENT AUTO 0.1 % (0.1-1.3); HEMATOCRIT 20.2 % (34.3-46.0); IMMATURE GRAN ABSOLUTE AUTO 0.53 K/uL (0.00-0.23); IMMATURE GRAN PERCENT AUTO 3.7 % (0.0-0.7); LYMPHOCYTES ABSOLUTE AUTO 0.65 K/uL (0.8-3.3); LYMPHOCYTES PERCENT AUTO 4.5 % (11.4-47.7); MEAN CORPUSCULAR HGB CONC 32.7 g/dL (31.6-35.5); MEAN CORPUSCULAR VOLUME 98.1 fL (81.4-99.0); MONOCYTES ABSOLUTE AUTO 0.88 K/uL (0.20-0.90); MONOCYTES PERCENT AUTO 6.1 % (3.3-12.6); NEUTROPHILS ABSOLUTE AUTO 12.44 K/uL (1.0-7.6); NEUTROPHILS PERCENT AUTO 85.6 % (40.0-78.1); PLATELET COUNT,PLT 284 K/uL (130-375); RED BLOOD CELL COUNT 2.06 M/uL (3.77-5.24); WHITE BLOOD CELL COUNT,WBC 14.5 K/uL (3.2-11.0)
[2023-07-15] MEDS ORDERED: fentaNYL 100 MCG/2 ML SDV IVPUSH ONE (13:18)
[2023-07-15 13:20] LABS: BASOPHILS ABSOLUTE AUTO 0.02 K/uL (0.00-0.10); HEMOGLOBIN 6.6 g/dL (11.2-15.5)
[2023-07-15 13:36] LABS: A/G RATIO 0.8 (1.2-2.2); ALANINE AMINOTRANSFERASE,ALT 19 U/L (12-78); ALBUMIN 2.3 g/dL (3.4-5.0); ALKALINE PHOSPHATASE 111 U/L (46-116); ASPARTATE AMNIOTRANSFERASE,AST 35 U/L (15-37); BILIRUBIN TOTAL 0.5 mg/dL (0.2-1.0); BLOOD UREA NITROGEN,BUN 35 mg/dL (7-18); CALCIUM 8.4 mg/dL (8.5-10.1); CARBON DIOXIDE,CO2 24 mmol/L (21-32); CHLORIDE,CL 103 mmol/L (100-108); CREATININE 2.1 mg/dL (0.6-1.0); ESTIMATED GFR 24 mL/min (>60); GLUCOSE RANDOM 128 mg/dL (74-106); POTASSIUM,K 5.3 mmol/L (3.6-5.2); PROTEIN TOTAL,TP 5.3 g/dL (6.4-8.2); SODIUM,NA 134 mmol/L (140-148)
[2023-07-15 13:37] LABS: ANION GAP 12.3 mmol/L (5.0-14.0)
[2023-07-15 16:07] LABS: BODY FLUID TYPE PERITONEAL FLUID
[2023-07-15 16:21] LABS: LACTATE DEHYDROGENASE,BODY FL 314 IU/L
[2023-07-15 16:32] LABS: ALBUMIN,BODY FLUID 1.3; BODY FLUID TYPE PERITONEAL FLUID
[2023-07-15 16:33] LABS: AMYLASE,BODY FLUID 24 U/L
[2023-07-15 16:37] LABS: BODY FLUID TYPE PERITONEAL FLUID; GLUCOSE,BODY FLUID 83 mg/dL; LIPASE,BODY FLUID 13 U/L; PROTEIN,BODY FLUID 2.8 g/dL
[2023-07-15] MEDS ORDERED: Ondansetron 4 MG/2 ML SDV IV PRN (16:40)
[2023-07-15] MEDS ORDERED: Polyethylene Glycol 3350 Powder 17 GM Packet PO PRN (16:40)
[2023-07-15] MEDS ORDERED: Acetaminophen/HYDROcodone 325-5 MG Tab PO PRN (16:40)
[2023-07-15] MEDS ORDERED: Acetaminophen 325 MG Tab PO PRN (16:40)
[2023-07-15 16:42] LABS: TRIGLYCERIDES,BODY FLUID 27 mg/dL
[2023-07-15 16:45] LABS: BODY FLUID TYPE PERITONEAL FLUID; MONONUCLEAR, BODY FLUID 18 %; POLYMORPHONUCLEAR, BODY FLUID 82 %; RBC,BODY FLUID 950000 /ul; WBC BODY FLUID 200 /ul
[2023-07-15] MEDS ORDERED: Sodium Chloride 0.9% 10 ML Syringe FLUSH ONE (16:57)
[2023-07-15] MEDS ORDERED: Iopamidol 612 MG/ML 100 ML Bottle IV ONE (16:57)
[2023-07-15] MEDS ORDERED: Sodium Chloride 0.9% 50 ML IV ONE (16:57)
[2023-07-15] MEDS ORDERED: Pantoprazole 40 MG Vial IV SCH (17:00)
[2023-07-15] MEDS ORDERED: Potassium Chloride 20 MEQ Tab.ER PO SCH (17:00)
[2023-07-15] MEDS ORDERED: Sucralfate 1 GM Tab PO SCH (17:00)
[2023-07-15] MEDS ORDERED: Ferrous Sulfate 325 MG Tab PO SCH (17:00)
[2023-07-15] MEDS ORDERED: Non-Formulary Medication 1 Each (Magnesium Oxide [Magnesium] 400 MG Tablet) PO SCH (21:00)
[2023-07-15] MEDS ORDERED: Magnesium Oxide 400 MG Tab PO SCH (21:00)
[2023-07-15] MEDS ORDERED: POTASSIUM CHLORIDE 20 MEQ PO SCH (21:00)
[2023-07-15] MEDS ORDERED: Sulfamethoxazole/Trimethoprim 800-160 MG Tab PO SCH (21:00)
[2023-07-16] MEDS ORDERED: Furosemide 40 MG Tab PO SCH (09:00)
[2023-07-16] MEDS ORDERED: Atenolol 25 MG Tab PO SCH (09:00)
== END 2023-07-15 19:12 ==
LOC: JP.ED 12:02 → JP.ICU 14:59 → UNDOADMIN 14:59 → UNDODISIN 15:00
DX: D62 Acute posthemorrhagic anemia (principal); C56.3 Malignant neoplasm of bilateral ovaries; M54.32 Sciatica, left side; I10 Essential (primary) hypertension; E78.00 Pure hypercholesterolemia, unspecified; Z20.822 Contact with and (suspected) exposure to COVID-19; Z86.16 Personal history of COVID-19; Z79.899 Other long term (current) drug therapy; Z88.0 Allergy status to penicillin; Z88.1 Allergy status to other antibiotic agents
CPT/HCPCS: 36415; 36430; 49083; 80053; 82042; 82150; 82945; 83605; 83615; 84157; 84478; 85025; 86850; 86900; 86901; 86920; 86922; 87070; 87205; 89050; C1729; C9113; J3490; J7030; P9016; U0002